=== PATIENT | female | born 1935 | race Caucasian/White ===

== ENCOUNTER → 2017-03-31 | Outpatient (CLI) | payer MEDICARE, BC ==
[2017-03-31 18:17] LABS: Anion Gap 8 mmol/L; Blood Urea Nitrogen 20 mg/dL (7-17); Carbon Dioxide 28 mmol/L (22-30); Chloride 105 mmol/L (98-107); Creatine Kinase 91 U/L (30-135); Glucose 85 mg/dL (74-99); Non-African American GFR(MDRD) >60 (>60 ml/min/1.73 sqM); Potassium 4.4 mmol/L (3.5-5.1); Sodium 141 mmol/L (137-145)
[2017-03-31 19:26] LABS: Vitamin B12 889 pg/mL
[2017-04-03 15:15] LABS: Mis test requested (Blood) MyastheniaGrav Pnl 1
== END | disposition home or self-care (01) ==
LOC: LABWHC1 16:43
PROVIDERS: ATTEND Psychiatry & Neurology Neurology
DX: M62.81 Muscle weakness (generalized) (principal); R53.83 Other fatigue; H53.2 Diplopia
CPT/HCPCS: 36415; 80048; 82306; 82550; 82607; 83519; 86255

== ENCOUNTER → 2018-01-20 | Outpatient (CLI) | payer MEDICARE, BC ==
[2018-01-20 19:27] LABS: Basophils % (A) 0 %; Eosinophils # (A) 0.1 k/uL (0-0.7); Eosinophils % (A) 2 %; HCT 43.8 % (34.0-46.0); HGB 14.1 gm/dL (11.4-16.0); Lymphocytes # (A) 2.2 k/uL (1.0-4.8); Lymphocytes % (A) 56 %; MCH 27.4 pg (25.0-35.0); MCHC 32.3 g/dL (31.0-37.0); MCV 84.8 fL (80.0-100.0); Mean Platelet Volume 7.8; Monocytes # (A) 0.3 k/uL (0-1.0); Monocytes % (A) 7 %; Neutrophils # (A) 1.3 k/uL (1.3-7.7); Neutrophils % (A) 33 %; Platelet Count 155 k/uL (150-450); RBC 5.16 m/uL (3.80-5.40); RDW 13.4 % (11.5-15.5); WBC 3.9 k/uL (3.8-10.6)
[2018-01-20 19:40] LABS: ALT 28 U/L (9-52); AST 39 U/L (14-36); Albumin 4.2 g/dL (3.5-5.0); Alkaline Phosphatase 65 U/L (38-126); Anion Gap 11 mmol/L; Blood Urea Nitrogen 15 mg/dL (7-17); Calcium 10.5 mg/dL (8.4-10.2); Carbon Dioxide 30 mmol/L (22-30); Chloride 100 mmol/L (98-107); Glucose 94 mg/dL (74-99); Potassium 4.5 mmol/L (3.5-5.1); Sodium 141 mmol/L (137-145); Total Bilirubin 0.3 mg/dL (0.2-1.3)
[2018-01-20 20:15] LABS: Ovalocytes Present; RBC Fragments Present
== END | disposition home or self-care (01) ==
LOC: LABMAIN 17:48
PROVIDERS: ATTEND Internal Medicine Critical Care Medicine
DX: E27.40 Unspecified adrenocortical insufficiency (principal)
CPT/HCPCS: 36415; 80053; 82533; 85025

== ENCOUNTER → 2018-06-07 | Outpatient (CLI) | payer BC, MEDICARE ==
--- NOTE | 2018-06-09 13:17 | MM ---
Reason for exam: screening (asymptomatic). Last mammogram was performed 1 year and 9 months ago. History: Patient is postmenopausal and has history of other cancer at age 53. Family history of breast cancer in sister at age 65. 2 excisional biopsies of the right breast. Took estrogen for 14 years 7 months. Physical Findings: A clinical breast exam by your physician is recommended on an annual basis and results should be correlated with mammographic findings. MG 3D Screening Mammo W/Cad Bilateral CC and MLO view(s) were taken. Prior study comparison: September 01, 2016, bilateral MG 3d screening mammo w/cad. December 14, 2014, bilateral MG screening mammo w CAD. The breast tissue is extremely dense which could obscure a lesion on mammography. No significant changes when compared with prior studies. ASSESSMENT: Benign, BI-RAD 2 RECOMMENDATION: Routine screening mammogram of both breasts in 1 year.
== END | disposition home or self-care (01) ==
LOC: RADMAMWWP 13:52
PROVIDERS: ATTEND Obstetrics & Gynecology
DX: Z12.31 Encounter for screening mammogram for malignant neoplasm of breast (principal); Z80.3 Family history of malignant neoplasm of breast
CPT/HCPCS: 77063; 77067

== ENCOUNTER 2019-09-26 15:08 | Inpatient (IN) | payer MEDICARE, BC ==
--- NOTE | 2019-09-26 15:33 | ED ---
SOB HPI - General Source: patient, family, RN notes reviewed Limitations: no limitations <Daryn Shields - Last Filed: 09/26/19 15:34> <Alex Simms - Last Filed: 09/26/19 16:40> - General Stated Complaint: Pneumonia, possible flu Time Seen by Provider: 09/26/19 15:29 - History of Present Illness Initial Comments: this an 84-year-old female presents emergency Department with chief complaint of increasing cough congestion shortness of breath. Patient states that she was diagnosed with influenza last week. Patient also was diagnosed with acute bronchitis and was placed on antibiotics, steroids. Patient was also placed on cough medication. Patient was seen in the ER over the weekend and [place] and was discontinued from antibiotics. Patient's had worsening cough and shortness breath. Patient has seen Dr. Wooten in the past she has been domo gnosed with slight asthma, COPD. (Daryn Shields) 84-year-old female with recent diagnosis of influenza, history of COPD presenting with cough and dyspnea. I discussed this case with the patient's medical auditor Dr. Fletcher who had evaluated the patient the office prior to [facility]. Outpatient x-ray had revealed bilateral pneumonia. She was sent to the emergency department for admission for treatment of COPD exacerbation, influenza, and bilateral community acquired pneumonia. (Alex Simms) - Related Data Allergies Allergy/AdvReac Type Severity Reaction Status Date / Time ampicillin Allergy Rash/Hives Verified 09/26/19 15:38 celecoxib [From Celebrex] Allergy Rash/Hives Verified 09/26/19 15:38 gatifloxacin [From Tequin] Allergy Rash/Hives Verified 09/26/19 15:38 meperidine [From Demerol] Allergy Unknown Verified 09/26/19 15:38 naproxen [From Naprelan] Allergy Rash/Hives Verified 09/26/19 15:38 Review of Systems ROS Other: All systems not noted in ROS Statement are negative. <Daryn Shields - Last Filed: 09/26/19 15:34> ROS Other: All systems not noted in ROS Statement are negative. <Alex Simms - Last Filed: 09/26/19 16:40> ROS Statement: Those systems with pertinent positive or pertinent negative responses have been documented in the HPI. General Exam General appearance: alert, in no apparent distress Head exam: Present: atraumatic, normocephalic Eye exam: Present: normal appearance, PERRL ENT exam: Present: normal exam Neck exam: Present: normal inspection. Absent: tenderness, meningismus Respiratory exam: Present: wheezes, rhonchi, decreased breath sounds Cardiovascular Exam: Present: regular rate, normal rhythm GI/Abdominal exam: Present: soft. Absent: distended, tenderness, guarding Extremities exam: Present: normal inspection, normal capillary refill. Absent: pedal edema, calf tenderness Neurological exam: Present: alert, oriented X3, CN II-XII intact. Absent: motor sensory deficit Psychiatric exam: Present: normal affect, normal mood Skin exam: Present: warm, dry, intact. Absent: cyanosis, diaphoretic <Alex Simms - Last Filed: 09/26/19 16:40> Course Vital Signs 09/26/19 09/26/19 09/26/19 15:28 16:28 16:31 Temperature 97.9 F Pulse Rate 66 64 64 Respiratory 20 18 Rate Blood Pressure 123/71 126/55 O2 Sat by Pulse 97 97 Oximetry Medical Decision Making - Lab Data Result diagrams: 09/26/19 15:10 <Alex Simms - Last Filed: 09/26/19 16:40> - Medical Decision Making 84-year-old female presenting for evaluation of cough and dyspnea. She diagnosed with influenza 4 days prior. She had an outpatient x-ray today which was reported as bilateral pneumonia. Sent in by pulmonology for admission. Patient admitted to internal medicine with pulmonology on consult. She had previous history of adrenal insufficiency following steroids, and patient would like to hold off on any steroid infusion at this time. She will be treated with antibiotics and nebulized albuterol and Atrovent. Patient has leukocytosis 13.6, she has a sodium of 126 treated with normal saline. Normal lactic acid. Patient's will receive repeat chest x-ray tomorrow morning. EKG: Normal sinus rhythm, no ST segment elevation, rate is 64, IL interval 168, QRS duration 88, QTC 443 (Alex Simms) - Lab Data Lab Results 09/26/19 09/26/19 Range/Units 15:10 15:10 WBC 13.6 H (3.8-10.6) k/uL RBC 4.37 (3.80-5.40) m/uL Hgb 12.6 (11.4-16.0) gm/dL Hct 37.4 (34.0-46.0) % MCV 85.7 (80.0-100.0) fL MCH 28.9 (25.0-35.0) pg MCHC 33.8 (31.0-37.0) g/dL RDW 13.5 (11.5-15.5) % Plt Count 251 (150-450) k/uL Neutrophils % 82 % Lymphocytes % 8 % Monocytes % 6 % Eosinophils % 1 % Basophils % 2 % Neutrophils # 11.2 H (1.3-7.7) k/uL Lymphocytes # 1.1 (1.0-4.8) k/uL Monocytes # 0.8 (0-1.0) k/uL Eosinophils # 0.1 (0-0.7) k/uL Basophils # 0.2 (0-0.2) k/uL Plasma Lactic Acid Kyle 1.1 (0.7-2.0) mmol/L Disposition <Daryn Shields M - Last Filed: 09/26/19 15:34> Is patient prescribed a controlled substance at d/c from ED?: No Decision to Admit Reason: Admit from EC Decision Date: 09/26/19 Decision Time: 16:10 <Alex Simms - Last Filed: 09/26/19 16:40> Clinical Impression: Community acquired pneumonia, Acute exacerbation of chronic obstructive pulmonary disease, Influenza Disposition: ADMITTED IP TO THIS HOSP Condition: Stable Referrals: Alex Murray MD [Primary Care Provider] - 1-2 days
[2019-09-26] MEDS ORDERED: methylPREDNISolone SOD SUCCI 125 MG/2 ML VIAL IV STA (15:56)
[2019-09-26] MEDS ORDERED: IPRATROPIUM 0.5 MG/2.5 ML NEBU INHALATION STA (15:56)
[2019-09-26] MEDS ORDERED: ALBUTEROL NEBULIZED 2.5 MG/3 ML INHALATION STA (15:56)
[2019-09-26] MEDS ORDERED: IPRATROPIUM-ALBUTEROL 3 ML NEB INHALATION PRN (16:04)
[2019-09-26] MEDS ORDERED: LEVOFLOXACIN 500MG-D5W PMX 500 MG in DEXTROSE/WATER 1 100ML.BAG IVPB STA (16:04)
[2019-09-26 16:25] LABS: Basophils # (A) 0.2 k/uL (0-0.2); Basophils % (A) 2 %; Eosinophils # (A) 0.1 k/uL (0-0.7); Eosinophils % (A) 1 %; HCT 37.4 % (34.0-46.0); HGB 12.6 gm/dL (11.4-16.0); Lymphocytes # (A) 1.1 k/uL (1.0-4.8); Lymphocytes % (A) 8 %; MCH 28.9 pg (25.0-35.0); MCHC 33.8 g/dL (31.0-37.0); MCV 85.7 fL (80.0-100.0); Monocytes # (A) 0.8 k/uL (0-1.0); Monocytes % (A) 6 %; Neutrophils # (A) 11.2 k/uL (1.3-7.7); Neutrophils % (A) 82 %; Platelet Count 251 k/uL (150-450); RBC 4.37 m/uL (3.80-5.40); RDW 13.5 % (11.5-15.5); WBC 13.6 k/uL (3.8-10.6)
[2019-09-26 16:39] LABS: ALT 50 U/L (4-34); AST 70 U/L (14-36); African American GFR (CKD) >90 (>60 ml/min/1.73 sqM); Albumin 3.6 g/dL (3.5-5.0); Alkaline Phosphatase 102 U/L (38-126); Anion Gap 10 mmol/L; Blood Urea Nitrogen 14 mg/dL (7-17); Calcium 8.5 mg/dL (8.4-10.2); Carbon Dioxide 27 mmol/L (22-30); Chloride 89 mmol/L (98-107); Glucose 119 mg/dL (74-99); Magnesium 2.3 mg/dL (1.6-2.3); Non-African American GFR(CKD) 81 (>60 ml/min/1.73 sqM); Potassium 3.8 mmol/L (3.5-5.1); Sodium 126 mmol/L (137-145); Total Bilirubin 0.6 mg/dL (0.2-1.3); Total Protein 6.5 g/dL (6.3-8.2)
[2019-09-26] MEDS: SODIUM CHLORIDE 0.9% 1,000 ML IV SCH (17:51)
[2019-09-26] MEDS ORDERED: IPRATROPIUM-ALBUTEROL 3 ML NEB INHALATION SCH (20:00)
[2019-09-26] MEDS ORDERED: PANTOPRAZOLE 40 MG TABLET PO PRN (22:52)
[2019-09-26] MEDS ORDERED: DICYCLOMINE 10 MG CAP PO PRN (22:52)
[2019-09-26] MEDS ORDERED: LISINOPRIL 20 MG TAB PO SCH (23:00)
--- NOTE | 2019-09-26 23:08 | P.HPIM ---
History of Present Illness H&P Date: 09/26/19 Chief Complaint: Cough congestion History of presenting complaint: This is a very pleasant 84-year-old patient of Dr. Murray. Chronic stable medical conditions include GERD, hypertension, hyperlipidemia, hypothyroid and a formal for arrhythmia for which she takes amiodarone. She follows with the hack saw operator Dr. Vincent from [place]. Patient accompanied by her daughter. Patient for a week diagnosed with influenza A type unknown. She is having congestion cough. She was given medications including antibiotic and steroids. No fever and chills. Just felt very weak tired rundown decreased appetite and a lot of coughing. Patient had gone down to see Dr. Aguirre earlier today. Reportedly was found to have bilateral infiltrates and was sent in. Feels tired rundown. Review of systems: GEN.: Decreased appetite tired rundown EYES: Itchy eyes with some drainage HEENT: None NECK: None RESPIRATORY: As above CARDIOVASCULAR: None GASTROINTESTINAL: None GENITOURINARY: None MUSCULOSKELETAL: Some joint pains LYMPHATICS: None HEMATOLOGICAL: None PSYCHIATRY: None NEUROLOGICAL: None Past medical history to include: Asthma, GERD, hypertension, hyperlipidemia, thyroid cancer, SVT, macular degeneration Social history: Does not smoke or drink alcohol. . Physical examination: VITAL SIGNS: 97.9, 66, 20, 123/71, 97% on room air GENERAL: BMI 22.2, laying in bed tired appearing. EYES: Pupils equal. Conjunctiva normal. HEENT: External appearance of nose and ears normal, oral cavity grossly normal. NECK: JVD not raised; masses not palpable. HEART: First and second heart sounds are normal; no edema. LUNGS: Respiratory rate increased, some decreased breaths on some occasional crackles mild wheezing. ABDOMEN: Soft, nontender, liver spleen not palpable, no masses palpable. PSYCH: Alert and oriented x3; mood and affect slightly anxiousl. NEUROLOGICAL: Cranial nerves grossly intact; no facial asymmetry, power and sensation grossly intact. LYMPHATICS: No lymph nodes palpable in the axilla and neck 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 INVESTIGATIONS, reviewed in the clinical context: White count 13.6 hemoglobin 12.6 potassium 3.8 sodium 126 creatinine 0.69 Assessment: -This is a patient was diagnosed with influenza type unknown about a week ago. Has had steroids antibiotics not much help. Patient now trouble with weakness tiredness decreased appetite and rundown and bouts of coughing. Seems to se condary bronchospasm. Did not have the x-ray but reportedly and bilateral infiltrates likely from influenza pneumonitis. There is no fever or chills. Secondary infection cannot be ruled out -Intubated asthma with acute exacerbation -GERD -Hyperlipidemia -Essential hypertension -History of arrhythmia for which patient is on amiodarone -Hypothyroid Plan: Patient be continued on Tamiflu. Add bronchodilators and inhaled steroids. Home medications resumed. Lovenox for DVT prophylaxis. Pulmonary was consulted. Care was discussed with the patient and daughter questions were answered. We'll also add IV ceftriaxone. Repeat a chest x-ray in the morning. We'll also order pro calcitonin. Past Medical History Past Medical History: Asthma, Cancer, GERD/Reflux, Hyperlipidemia, Hypertension, Thyroid Disorder Additional Past Medical History / Comment(s): macular degeneration, SVT, thyroid cancer History of Any Multi-Drug Resistant Organisms: None Reported Past Surgical History: Adenoidectomy, Appendectomy, Hysterectomy Additional Past Surgical History / Comment(s): thyroid removal, removal of part of right kidney, back surgery, knee surgery replacement, shoulder surgery Additional Past Anesthesia/Blood Transfusion Reaction / Comment(s): Anesthesia takes a while to wake up Past Psychological History: No Psychological Hx Reported Smoking Status: Never smoker Past Alcohol Use History: None Reported Past Drug Use History: None Reported - Past Family History Mother Family Medical History: Cancer Additional Family Medical History / Comment(s): Open Heart Sx Father History Unknown: Yes Family Medical History: CVA/TIA Sister(s) History Unknown: Yes Family Medical History: Cancer Additional Family Medical History / Comment(s): Breast Cancers Brother(s) History Unknown: Yes Family Medical History: CVA/TIA Additional Family Medical History / Comment(s): Magdaleno Bleed Medications and Allergies Home Medications Medication Instructions Recorded Confirmed Type Amiodarone [Cordarone] 200 mg PO DAILY 09/26/19 09/26/19 History Aspirin EC [Ecotrin Low Dose] 81 mg PO DAILY 09/26/19 09/26/19 History Atorvastatin [Lipitor] 40 mg PO DAILY 09/26/19 09/26/19 History Benzonatate [Tessalon Perles] 200 mg PO TID PRN 09/26/19 09/26/19 History Calcium Carbonate [Calcium] 600 mg PO DAILY 09/26/19 09/26/19 History Cephalexin [Keflex] 500 mg PO Q8H 09/26/19 09/26/19 History Cholecalciferol (Vitamin D3) 2,000 unit PO DAILY 09/26/19 09/26/19 History [Vitamin D3] Denosumab [Prolia] 60 mg SQ Q180D 09/26/19 09/26/19 History Dicyclomine [Bentyl] 10 mg PO BID PRN 09/26/19 09/26/19 History Hydrochlorothiazide 25 mg PO DAILY PRN 09/26/19 09/26/19 History Levothyroxine Sodium [Synthroid] 88 mcg PO DAILY 09/26/19 09/26/19 History Lisinopril 40 mg PO HS 09/26/19 09/26/19 History Metoprolol Tartrate [Lopressor] 75 mg PO BID 09/26/19 09/26/19 History Olopatadine HCl [Patanol] 1 drop BOTH EYES BID 09/26/19 09/26/19 History Pantoprazole Sodium [Protonix] 40 mg PO BID PRN 09/26/19 09/26/19 History Promethaz-Cod 6.25-10 mg/5 ml 5 ml PO Q6H PRN 09/26/19 09/26/19 History [Phenergan with Codeine] Restful Sleep 1 tab PO HS PRN 09/26/19 09/26/19 History Vit C/E/Zn/Coppr/Lutein/Zeaxan 1 cap PO BID 09/26/19 09/26/19 History [Preservision Areds 2 Softgel] guaiFENesin SYRUP 100MG/5ML 200 mg PO Q6H PRN 09/26/19 09/26/19 History [Robitussin] Allergies Allergy/AdvReac Type Severity Reaction Status Date / Time celecoxib [From Celebrex] Allergy Rash/Hives Verified 09/26/19 17:30 gatifloxacin [From Tequin] Allergy Rash/Hives Verified 09/26/19 17:30 naproxen [From Naprelan] Allergy Rash/Hives Verified 09/26/19 17:30 ampicillin AdvReac Nausea & Verified 09/26/19 17:30 Vomiting hydrocortisone [From Cortef] AdvReac adrenal Verified 09/26/19 17:30 glands shut down from injections meperidine [From Demerol] AdvReac passed out Verified 09/26/19 17:30 Physical Exam Vitals: Vital Signs Temp Pulse Pulse Resp BP BP Pulse Ox 09/26/19 20:15 98.2 F 76 18 124/64 98 09/26/19 19:40 69 09/26/19 19:35 68 09/26/19 16:49 67 09/26/19 16:31 64 09/26/19 16:28 64 18 126/55 97 09/26/19 15:28 97.9 F 66 20 123/71 97 Intake and Output 09/26/19 09/26/19 09/27/19 14:59 22:59 06:59 Other: Weight 52.163 kg Results CBC & Chem 7: 09/26/19 15:10 09/26/19 15:10 Labs: Abnormal Lab Results - Last 24 Hours (Table) 09/26/19 09/26/19 Range/Units 15:10 15:10 WBC 13.6 H (3.8-10.6) k/uL Neutrophils # 11.2 H (1.3-7.7) k/uL Sodium 126 L (137-145) mmol/L Chloride 89 L (98-107) mmol/L Glucose 119 H (74-99) mg/dL AST 70 H (14-36) U/L ALT 50 H (4-34) U/L Thrombosis Risk Factor Assmnt - Choose All That Apply Any of the Below Risk Factors Present?: Yes Each Risk Factor Represents 3 Points: Age 75 years or older Thrombosis Risk Factor Assessment Total Risk Factor Score: 3 Thrombosis Risk Factor Assessment Level: Moderate Risk
[2019-09-26] MEDS: KETOTIFEN 0.025% OPHTH DROPS 5 ML BTL BOTH EYES SCH (23:26)
[2019-09-26] MEDS: MELATONIN 1 MG TAB PO SCH (23:28)
[2019-09-26] MEDS: METOPROLOL TARTRATE 25 MG TAB PO SCH (23:29)
[2019-09-26] MEDS: LISINOPRIL 20 MG TAB PO SCH (23:29)
[2019-09-26] MEDS: ENOXAPARIN 40 MG/0.4 ML SYRINGE SQ SCH (23:31)
[2019-09-26] MEDS: CIPROFLOXACIN 0.3% OPHTH SOLN 5 ML BTL BOTH EYES SCH (23:32)
[2019-09-27] MEDS: BUDESONIDE 1 MG/2 ML NEBU INHALATION SCH ×3 (01:02→19:05)
[2019-09-27] MEDS: IPRATROPIUM-ALBUTEROL 3 ML NEB INHALATION SCH ×7 (01:02→19:05)
[2019-09-27] MEDS: CIPROFLOXACIN 0.3% OPHTH SOLN 5 ML BTL BOTH EYES SCH ×6 (04:29→23:01)
[2019-09-27] MEDS: SODIUM CHLORIDE 0.9% 1,000 ML IV SCH ×2 (04:30→20:40)
[2019-09-27] MEDS: LEVOTHYROXINE 88 MCG TAB PO SCH (04:32)
[2019-09-27] MEDS: ATORVASTATIN 40 MG TAB PO SCH (08:24)
[2019-09-27] MEDS: LISINOPRIL 20 MG TAB PO SCH ×2 (08:24→20:39)
[2019-09-27] MEDS: ASPIRIN 81 MG PO SCH (08:24)
[2019-09-27] MEDS: METOPROLOL TARTRATE 25 MG TAB PO SCH ×2 (08:24→20:39)
[2019-09-27] MEDS: AMIODARONE 200 MG TAB PO SCH (08:24)
[2019-09-27] MEDS: CALCIUM CARBONATE 500 MG CHEWABLE PO SCH (08:24)
[2019-09-27] MEDS: KETOTIFEN 0.025% OPHTH DROPS 5 ML BTL BOTH EYES SCH ×2 (08:25→20:39)
[2019-09-27] MEDS: VIT A,C & E-LUTEIN-MINERALS 1 EACH TAB PO SCH (08:25)
[2019-09-27] MEDS: ENOXAPARIN 40 MG/0.4 ML SYRINGE SQ SCH (08:27)
[2019-09-27] MEDS ORDERED: OSELTAMIVIR 75 MG CAP PO SCH (09:00)
--- NOTE | 2019-09-27 09:28 | XR ---
EXAMINATION TYPE: XR chest 2V DATE OF EXAM: 09/27/2019 COMPARISON: 01/07/2010 TECHNIQUE: PA and lateral views submitted. HISTORY: Pneumonia, cough FINDINGS: Hyperinflation suggests COPD. Mass in the right upper lobe measuring 2.8 cm. A patchy infiltrate in t he perihilar regions. Underlying COPD biapical pleural thickening. Heart size normal. No overt failur e. No pneumothorax. IMPRESSION: 1. COPD with patchy bilateral areas of atelectasis or infiltrate. 2. There is a 2.8 cm mass right upper lobe. Neoplastic process in the differential diagnosis recommen d CT of the chest.
--- NOTE | 2019-09-27 15:59 | P.CNPUL ---
History of Present Illness Consult date: 09/27/19 Reason for consult: dyspnea, cough Chief complaint: Influenza A infection, bilateral pneumonia History of present illness: 84-year-old white female patient with history of mild intermittent bronchial asthma, history of adrenal cortical hypofunction, benign essential hypertension, migraine cephalgia, who presents to the hospital with 1-1/2 week history of respiratory illness, cough, production of green and yellow sputum, severe headaches, sore throat. Patient did see her primary care provider Dr. Murray on outpatient basis she was started on Keflex on her second visit after no improvement, was diagnosed with influenza infection however not started on Tamiflu as it was felt that she was too far into the course of the viral illness. Last S[place] patient presented to [place] emergency department because she was feeling very weak, her ribs were hurting from coughing spells, and she was feeling significantly worse, reportedly chest x-rays were taken in the ED, and patient was told to stop her Keflex and she was sent home from the emergency department that night, yesterday on 09/26/[address] patient went to see Dr[address] Aguirre the pulmonary clinic, and is diagnosed with bilateral pneumonia and was sent in for inpatient evaluation and treatment. Chest x-ray showed COPD with patchy bilateral areas of infiltration, and 2.8 cm mass in the right upper lobe, which follow-up CT of the chest was recommended to rule out neoplastic process. She is a lifetime nonsmoker, has not had any weight loss, she reports previous chest x-rays in normal limits. Patient has been started on Tamiflu, and Rocephin, and we are asked to see the patient for bilateral pneumonia and abnormality involving the right upper lobe rule out neoplastic process. Review of Systems All systems: negative Constitutional: Denies chills, Denies fever Eyes: denies blurred vision, denies pain Ears, nose, mouth and throat: Denies headache, Denies sore throat Cardiovascular: Denies chest pain, Denies shortness of breath Respiratory: Reports cough with sputum, Reports dyspnea, Denies cough Gastrointestinal: Denies abdominal pain, Denies diarrhea, Denies nausea, Denies vomiting Genitourinary: Denies dysuria, Denies hematuria Musculoskeletal: Denies myalgias Integumentary: Denies pruritus, Denies rash Neurological: Denies numbness, Denies weakness Psychiatric: Denies anxiety, Denies depression Endocrine: Denies fatigue, Denies weight change Past Medical History Past Medical History: Asthma, Cancer, GERD/Reflux, Hyperlipidemia, Hypertension, Thyroid Disorder Additional Past Medical History / Comment(s): macular degeneration, SVT, thyroid cancer History of Any Multi-Drug Resistant Organisms: None Reported Past Surgical History: Adenoidectomy, Appendectomy, Hysterectomy Additional Past Surgical History / Comment(s): thyroid removal, removal of part of right kidney, back surgery, knee surgery replacement, shoulder surgery Additional Past Anesthesia/Blood Transfusion Reaction / Comment(s): Anesthesia takes a while to wake up Past Psychological History: No Psychological Hx Reported Smoking Status: Never smoker Past Alcohol Use History: None Reported Past Drug Use History: None Reported - Past Family History Mother Family Medical History: Cancer Additional Family Medical History / Comment(s): Open Heart Sx Father History Unknown: Yes Family Medical History: CVA/TIA Sister(s) History Unknown: Yes Family Medical History: Cancer Additional Family Medical History / Comment(s): Breast Cancers Brother(s) History Unknown: Yes Family Medical History: CVA/TIA Additional Family Medical History / Comment(s): Magdaleno Bleed Medications and Allergies Home Medications Medication Instructions Recorded Confirmed Type Amiodarone [Cordarone] 200 mg PO DAILY 09/26/19 09/26/19 History Aspirin EC [Ecotrin Low Dose] 81 mg PO DAILY 09/26/19 09/26/19 History Atorvastatin [Lipitor] 40 mg PO DAILY 09/26/19 09/26/19 History Benzonatate [Tessalon Perles] 200 mg PO TID PRN 09/26/19 09/26/19 History Calcium Carbonate [Calcium] 600 mg PO DAILY 09/26/19 09/26/19 History Cephalexin [Keflex] 500 mg PO Q8H 09/26/19 09/26/19 History Cholecalciferol (Vitamin D3) 2,000 unit PO DAILY 09/26/19 09/26/19 History [Vitamin D3] Denosumab [Prolia] 60 mg SQ Q180D 09/26/19 09/26/19 History Dicyclomine [Bentyl] 10 mg PO BID PRN 09/26/19 09/26/19 History Hydrochlorothiazide 25 mg PO DAILY PRN 09/26/19 09/26/19 History Levothyroxine Sodium [Synthroid] 88 mcg PO DAILY 09/26/19 09/26/19 History Lisinopril 20 mg PO BID 09/26/19 09/26/19 History Metoprolol Tartrate [Lopressor] 75 mg PO BID 09/26/19 09/26/19 History Olopatadine HCl [Patanol] 1 drop BOTH EYES BID 09/26/19 09/26/19 History Pantoprazole Sodium [Protonix] 40 mg PO BID PRN 09/26/19 09/26/19 History Promethaz-Cod 6.25-10 mg/5 ml 5 ml PO Q6H PRN 09/26/19 09/26/19 History [Phenergan with Codeine] Restful Sleep 1 tab PO HS PRN 09/26/19 09/26/19 History Vit C/E/Zn/Coppr/Lutein/Zeaxan 1 cap PO BID 09/26/19 09/26/19 History [Preservision Areds 2 Softgel] guaiFENesin SYRUP 100MG/5ML 200 mg PO Q6H PRN 09/26/19 09/26/19 History [Robitussin] Allergies Allergy/AdvReac Type Severity Reaction Status Date / Time celecoxib [From Celebrex] Allergy Rash/Hives Verified 09/26/19 17:30 gatifloxacin [From Tequin] Allergy Rash/Hives Verified 09/26/19 17:30 naproxen [From Naprelan] Allergy Rash/Hives Verified 09/26/19 17:30 ampicillin AdvReac Nausea & Verified 09/26/19 17:30 Vomiting hydrocortisone [From Cortef] AdvReac adrenal Verified 09/26/19 17:30 glands shut down from injections meperidine [From Demerol] AdvReac passed out Verified 09/26/19 17:30 Physical Exam Vitals: Vital Signs Temp Pulse Pulse Resp BP BP Pulse Ox 09/27/19 11:12 72 09/27/19 11:00 72 09/27/19 08:04 76 09/27/19 07:51 72 09/27/19 07:00 99.3 F 67 16 111/66 95 09/27/19 04:46 71 09/27/19 04:35 71 09/27/19 03:50 18 09/27/19 01:20 98.3 F 67 18 106/62 93 L 09/27/19 01:17 68 09/27/19 01:06 68 09/27/19 00:00 18 09/26/19 23:30 71 131/68 09/26/19 20:45 18 09/26/19 20:15 98.2 F 76 18 124/64 98 09/26/19 19:40 69 09/26/19 19:35 68 09/26/19 16:49 67 09/26/19 16:31 64 09/26/19 16:28 64 18 126/55 97 09/26/19 15:28 97.9 F 66 20 123/71 97 Intake and Output 09/26/19 09/27/19 09/27/19 22:59 06:59 14:59 Intake Total 450 450 600 Balance 450 450 600 Intake: IV 600 Sodium Chloride 0.9% 1, 600 000 ml @ 75 mls/hr IV . [id number] BRAD Rx#:[id number] Intake, IV Titration 450 450 Amount Sodium Chloride 0.9% 1, 450 450 000 ml @ 75 mls/hr IV . [id number] BRAD Rx#:[id number] Other: # Voids 2 Weight 52.163 kg GENERAL EXAM: Alert, very pleasant, 84-year-old white female, on room air, with pulse ox of 97%, frequent nonproductive cough comfortable in no apparent distress. HEAD: Normocephalic/atraumatic. EYES: Normal reaction of pupils, equal size. Conjunctiva pink, sclera white. NOSE: Clear with pink turbinates. THROAT: No erythema or exudates. NECK: No masses, no JVD, no thyroid enlargement, no adenopathy. CHEST: No chest wall deformity. Symmetrical expansion. LUNGS: Equal air entry with crackles bilateral bases and mid lungs CVS: Regular rate and rhythm, normal S1 and S2, no gallops, no murmurs, no rubs ABDOMEN: Soft, nontender. No hepatosplenomegaly, normal bowel sounds, no guarding or rigidity. EXTREMITIES: No clubbing, no edema, no cyanosis, 2+ pulses and upper and lower extremities. MUSCULOSKELETAL: Muscle strength and tone normal. SPINE: No scoliosis or deformity SKIN: No rashes CENTRAL NERVOUS SYSTEM: Alert and oriented -3. No focal deficits, tone is normal in all 4 extremities. PSYCHIATRIC: Alert and oriented -3. Appropriate affect. Intact judgment and insight. Results - Laboratory Findings CBC and BMP: 09/26/19 15:10 09/26/19 15:10 Abnormal lab findings: Abnormal Labs 09/26/19 09/26/19 15:10 15:10 WBC 13.6 H Neutrophils # 11.2 H Sodium 126 L Chloride 89 L Glucose 119 H AST 70 H ALT 50 H - Diagnostic Findings Chest x-ray: report reviewed, image reviewed Assessment and Plan Plan: Assessment: #1. Acute bilateral pneumonia, rule out influenza pneumonia, Legionella or atypical pneumonia #2. Right upper lobe mass, rule out neoplastic process, follow with CT chest in the next 24-48 hours #3. Acute influenza infection #4. History of mild intermittent bronchial asthma #5. GERD/reflux #6. Hypertension #7. Hyperlipidemia #8. History of thyroid cancer #9. Macular degeneration #10. History of adrenal cortical hypofunction Plan: Continue current treatment, will obtain influenza swab, continue Tamiflu, continued Rocephin will add Zithromax, Sorensen and Perforomist continue DuoNeb. HEENT sputum culture, we'll consider CT of the chest with contrast in next 24-48 hours. Follow-up chest x-ray in the morning. I performed a history & physical examination of the patient and discussed their management with my nurse practitioner, Kimberly Mckee. I reviewed the nurse practitioner's note and agree with the documented findings and plan of care. Lung sounds are positive for coarse bilateral crackles. The findings and the impression was discussed with the patient. I attest to the documentation by the nurse practitioner. Time with Patient: Greater than 30
[2019-09-27] MEDS: AZITHROMYCIN 500 MG TAB PO SCH (16:04)
[2019-09-27] MEDS: FORMOTEROL FUMARATE 20 MCG/2 ML NEBU INHALATION SCH (19:05)
[2019-09-27] MEDS: MELATONIN 1 MG TAB PO SCH (20:39)
[2019-09-27] MEDS ORDERED: OSELTAMIVIR 60 MG/10 ML ORAL SYRINGE PO SCH (21:00)
[2019-09-28] MEDS: IPRATROPIUM-ALBUTEROL 3 ML NEB INHALATION SCH ×6 (00:32→19:30)
--- NOTE | 2019-09-28 00:59 | P.PN ---
Progress Note - Text Progress Note Date: 09/27/19 Chief Complaint: Cough congestion Interval history: This is a very pleasant 84-year-old patient of Dr. Murray. Chronic stable medical conditions include GERD, hypertension, hyperlipidemia, hypothyroid and a formal for arrhythmia for which she takes amiodarone. She follows with the pharmaceutical sales specialist Dr. Vincent from [place]. Patient accompanied by her daughter. Patient for a week diagnosed with influenza A type unknown. She is having congestion cough. She was given medications including antibiotic and steroids. No fever and chills. Just felt very weak tired rundown decreased appetite and a lot of coughing. Patient had gone down to see Dr. Aguirre earlier today. Reportedly was found to have bilateral infiltrates and was sent in. Feels tired rundown. Today-feeling a bit better. Less cough. Did tolerate some diet. Less short of breath. Laying in bed. Review of systems: Was done for constitutional, cardiovascular, GI, pulmonary. relevant finding as above Active Medications Albuterol/Ipratropium (Duoneb 0.5 Mg-3 Mg/3 Ml Soln) 3 ml INHALATION RT-Q4H PRN PRN Reason: Shortness Of Breath Or Wheezing Albuterol/Ipratropium (Duoneb 0.5 Mg-3 Mg/3 Ml Soln) 3 ml INHALATION RT-Q4H [facility] Last Admin: 09/28/19 00:32 Dose: 3 ml Documented by: Amiodarone HCl (Cordarone) 200 mg PO DAILY [facility] Last Admin: 09/27/19 08:24 Dose: 200 mg Documented by: Aspirin (Aspirin) 81 mg PO DAILY [facility] Last Admin: 09/27/19 08:24 Dose: 81 mg Documented by: Atorvastatin Calcium (Lipitor) 40 mg PO DAILY [facility] Last Admin: 09/27/19 08:24 Dose: 40 mg Documented by: Azithromycin (Zithromax) 500 mg PO DAILY@1600 [facility] Last Admin: 09/27/19 16:04 Dose: 500 mg Documented by: Budesonide (Pulmicort) 1 mg INHALATION RT-BID [facility] Last Admin: 09/27/19 19:05 Dose: 1 mg Documented by: Calcium Carbonate/Glycine (Tums) 500 mg PO DAILY [facility] Last Admin: 09/27/19 08:24 Dose: 500 mg Documented by: Ciprofloxacin (Cipro Ophth Soln) 1 drops BOTH EYES Q4HR [facility] Last Admin: 09/27/19 23:01 Dose: 1 drops Documented by: Dicyclomine HCl (Bentyl) 10 mg PO BID PRN PRN Reason: GI Upset Enoxaparin Sodium (Lovenox) 40 mg SQ DAILY [facility] Last Admin: 09/27/19 08:27 Dose: 40 mg Documented by: Formoterol Fumarate (Perforomist) 20 mcg INHALATION RT-BID [facility] Last Admin: 09/27/19 19:05 Dose: 20 mcg Documented by: Sodium Chloride (Saline 0.9%) 1,000 mls @ 75 mls/hr IV .[id number] [facility] Last Admin: 09/27/19 20:40 Dose: 75 mls/hr Documented by: Ceftriaxone Sodium 1 gm/ (Sodium Chloride) 50 mls @ 100 mls/hr IVPB Q24HR [facility] Last Admin: 09/27/19 08:00 Dose: 100 mls/hr Documented by: Ketotifen Fumarate (Zaditor) 1 drops BOTH EYES BID [facility] Last Admin: 09/27/19 20:39 Dose: 1 drops Documented by: Levothyroxine Sodium (Synthroid) 88 mcg PO DAILY@0630 [facility] Last Admin: 09/27/19 04:32 Dose: 88 mcg Documented by: Lisinopril (Zestril) 20 mg PO BID [facility] Last Admin: 09/27/19 20:39 Dose: 20 mg Documented by: Melatonin (Melatonin) 2 mg PO HS [facility] Last Admin: 09/27/19 20:39 Dose: 2 mg Documented by: Metoprolol Tartrate (Lopressor) 75 mg PO BID [facility] Last Admin: 09/27/19 20:39 Dose: 75 mg Documented by: Multivitamins/Minerals (Ivite) 1 each PO DAILY [facility] Last Admin: 09/27/19 08:25 Dose: 1 each Documented by: Oseltamivir Phosphate (Tamiflu) 30 mg PO Q12HR [facility] Stop: 10/01/19 21:01 Last Admin: 09/27/19 20:39 Dose: 30 mg Documented by: Pantoprazole Sodium (Protonix) 40 mg PO BID PRN PRN Reason: Heartburn Physical examination: VITAL SIGNS: 98.3, 69, 16, 103/64, 98% GENERAL: Propped up but appears more comfortable EYES: Pupils equal. Conjunctiva normal. HEENT: External appearance of nose and ears normal, oral cavity grossly normal. NECK: JVD not raised; masses not palpable. HEART: First and second heart sounds are normal; no edema. LUNGS: Respiratory rate increased, some decreased breaths on some occasional crackles mild wheezing. ABDOMEN: Soft, nontender, liver spleen not palpable, no masses palpable. PSYCH: Alert and oriented x3; mood and affect slightly anxiousl. 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 Continue with bronchodilator steroids antibiotics. Computed tomography scan to follow up with the upper lung mass. Follow with pulmonary
[2019-09-28] MEDS: CIPROFLOXACIN 0.3% OPHTH SOLN 5 ML BTL BOTH EYES SCH ×6 (05:18→23:22)
[2019-09-28] MEDS: LEVOTHYROXINE 88 MCG TAB PO SCH (05:18)
[2019-09-28 07:25] LABS: HCT 33.3 % (34.0-46.0); HGB 10.7 gm/dL (11.4-16.0); MCH 28.1 pg (25.0-35.0); MCHC 32.1 g/dL (31.0-37.0); MCV 87.5 fL (80.0-100.0); Mean Platelet Volume 6.9; Platelet Count 232 k/uL (150-450); RDW 13.8 % (11.5-15.5); WBC 9.2 k/uL (3.8-10.6)
[2019-09-28 08:06] LABS: African American GFR (CKD) >90 (>60 ml/min/1.73 sqM); Anion Gap 9 mmol/L; Blood Urea Nitrogen 10 mg/dL (7-17); Calcium 7.9 mg/dL (8.4-10.2); Carbon Dioxide 25 mmol/L (22-30); Chloride 102 mmol/L (98-107); Glucose 108 mg/dL (74-99); Non-African American GFR(CKD) 83 (>60 ml/min/1.73 sqM); Potassium 3.4 mmol/L (3.5-5.1); Sodium 136 mmol/L (137-145)
--- NOTE | 2019-09-28 08:24 | XR ---
EXAMINATION TYPE: XR chest 2V DATE OF EXAM: 09/28/2019 COMPARISON: 09/27/2019 TECHNIQUE: PA and lateral views submitted. HISTORY: Follow-up pneumonia FINDINGS: Diffuse hyperinflation. Bilateral perihilar areas of subsegmental consolidation noted with small bila teral effusion. There is a mass in the right upper lobe again noted. No pneumothorax. No interstitial edema. Atherosclerotic change of the aorta. IMPRESSION: 1. COPD with bilateral areas of subsegmental consolidation correlate for pneumonia. Masslike area of consolidation in the right upper lobe stable. Differential diagnosis remains round pneumonia versus n eoplasm..
[2019-09-28] MEDS: SODIUM CHLORIDE 0.9% 1,000 ML IV SCH (08:26)
[2019-09-28] MEDS: CALCIUM CARBONATE 500 MG CHEWABLE PO SCH (08:27)
[2019-09-28] MEDS: ENOXAPARIN 40 MG/0.4 ML SYRINGE SQ SCH (08:27)
[2019-09-28] MEDS: KETOTIFEN 0.025% OPHTH DROPS 5 ML BTL BOTH EYES SCH ×2 (08:27→21:05)
[2019-09-28] MEDS: METOPROLOL TARTRATE 25 MG TAB PO SCH ×2 (08:28→21:04)
[2019-09-28] MEDS: AMIODARONE 200 MG TAB PO SCH (08:28)
[2019-09-28] MEDS: ASPIRIN 81 MG PO SCH (08:28)
[2019-09-28] MEDS: LISINOPRIL 20 MG TAB PO SCH ×2 (08:28→21:05)
[2019-09-28] MEDS: ATORVASTATIN 40 MG TAB PO SCH (08:28)
[2019-09-28] MEDS: VIT A,C & E-LUTEIN-MINERALS 1 EACH TAB PO SCH (08:29)
[2019-09-28] MEDS: FORMOTEROL FUMARATE 20 MCG/2 ML NEBU INHALATION SCH ×2 (08:37→19:30)
[2019-09-28] MEDS: BUDESONIDE 1 MG/2 ML NEBU INHALATION SCH ×2 (08:38→19:30)
[2019-09-28] MEDS ORDERED: OSELTAMIVIR 75 MG CAP PO SCH (09:00)
--- NOTE | 2019-09-28 14:48 | P.PN ---
Subjective Progress Note Date: 09/28/19 Principal diagnosis: Influenza A infection, bilateral pneumonia 73-year-old male patient came into the hospital because of worsening shortness of breath. He felt generalized weakness and malaise. Over the past few weeks, the patient had increased cough and congestion and he was having to take antibiotic course of doxycycline and a prednisone burst taper and [id number] medication. He had limited improvement and following that he had seen his primary care physician again for another round of antibiotics which included Z-Miko and prednisone taper. Unfortunately his condition did not improve. He came into the emergency department complaining of tachycardia and his heart rate was racing. He is known to have atrial fibrillation. In the ED, the patient was found to be in atrial fibrillation with rapid ventricular response. His white cell count was slightly elevated at 13. His lactic acid was at 2.8 dropped down to 1.2 with fluid resuscitation. His first set of troponin was negative at 0.01 and second set came back at 0.05. His creatinine is at 1.2. UA shows some mild leukocytosis with a white second of 26 per high- power field. There is +1 protein. Chest x-ray showed no acute cardio pulmonary abnormalities. He is currently bronchospastic and wheezy. He is on room air oxygen. He had a pulmonary function test in our office back in 2019 and his F EV1 was in the order of 78% of predicted. He has a home nebulizer. No other maintenance inhalational treatment for now. No fever. No chills. No his cardiac rhythm is back into normal sinus rhythm for now with frequent PACs. He has not taken any form of long-term anticoagulation. 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 He also has history of melanoma that was resected from the back many years back. No smoking 09/27/2019 on seeing the patient for a follow-up. The patient is feeling better compared to yesterday. Less bronchospastic and wheezy compared to yesterday. He remains on IV Solu-Medrol 40 mg every 8 hours. He is on DuoNeb neb last treatment [id number]. He is back into normal sinus rhythm. He was started on long-term and coagulation with Eliquis by cardiology no is also started on Tambocor. No fever. No chills. No night sweats. No other complaints otherwise for now. On 09/28/2019 patient seen in follow-up on medical surgical floor, she states she is improving, her breathing is easier, she is less weak, and less short of breath, room air pulse ox is 93%, she has been afebrile, influenza screen was negative, patient continues on a combination of Tamiflu Rocephin and Zithromax, sputum culture was sent and is pending at this time, blood culture showed no growth at the 24-hour everardo. These labs have been reviewed, showing white blood cell count of 9.2, hemoglobin of 10.7, serum sodium has improved to 136, potassium is 3.4, the rest of the electrolytes and renal profile are within normal limits, patient is tolerating oral intake, it is improving, no nausea, no vomiting, no diarrhea. Objective - Vital Signs Vital signs: Vital Signs Temp 98.6 F 09/28/19 07:00 Pulse 76 09/28/19 13:45 Resp 18 09/28/19 07:00 BP 130/70 09/28/19 07:00 Pulse Ox 93 L 09/28/19 07:00 Intake & Output 09/27/19 09/28/19 09/28/19 18:59 06:59 18:59 Intake Total 600 540 Balance 600 540 Intake: IV 600 Sodium Chloride 0.9% 1, 600 000 ml @ 75 mls/hr IV . [id number] [facility] Rx#:[id number] Oral 540 Other: # Voids 2 2 1 - Exam GENERAL EXAM: Alert, very pleasant, 84-year-old white female, on room air, with pulse ox of 97%, frequent nonproductive cough comfortable in no apparent distres s. HEAD: Normocephalic/atraumatic. EYES: Normal reaction of pupils, equal size. Conjunctiva pink, sclera white. NOSE: Clear with pink turbinates. THROAT: No erythema or exudates. NECK: No masses, no JVD, no thyroid enlargement, no adenopathy. CHEST: No chest wall deformity. Symmetrical expansion. LUNGS: Equal air entry with crackles bilateral bases and mid lungs CVS: Regular rate and rhythm, normal S1 and S2, no gallops, no murmurs, no rubs ABDOMEN: Soft, nontender. No hepatosplenomegaly, normal bowel sounds, no guarding or rigidity. EXTREMITIES: No clubbing, no edema, no cyanosis, 2+ pulses and upper and lower extremities. MUSCULOSKELETAL: Muscle strength and tone normal. SPINE: No scoliosis or deformity SKIN: No rashes CENTRAL NERVOUS SYSTEM: Alert and oriented -3. No focal deficits, tone is normal in all 4 extremities. PSYCHIATRIC: Alert and oriented -3. Appropriate affect. Intact judgment and insight. - Labs CBC & Chem 7: 09/28/19 06:19 09/28/19 06:19 Labs: Abnormal Lab Results - Last 24 Hours (Table) 09/26/19 09/28/19 09/28/19 Range/Units 15:10 06:19 06:19 Hgb 10.7 L (11.4-16.0) gm/dL Hct 33.3 L (34.0-46.0) % Sodium 136 L (137-145) mmol/L Potassium 3.4 L (3.5-5.1) mmol/L Glucose 108 H (74-99) mg/dL Calcium 7.9 L (8.4-10.2) mg/dL Procalcitonin 0.13 H (0.02-0.09) ng/mL Microbiology - Last 24 Hours (Table) 09/26/19 16:20 Blood Culture - Preliminary Blood No Growth after 24 hours Assessment and Plan Plan: Assessment: #1. Acute bilateral pneumonia, rule out influenza pneumonia, Legionella or atypical pneumonia #2. Right upper lobe mass, rule out neoplastic process, follow with CT chest in the next 24-48 hours #3. Acute influenza infection #4. History of mild intermittent bronchial asthma #5. GERD/reflux #6. Hypertension #7. Hyperlipidemia #8. History of thyroid cancer #9. Macular degeneration #10. History of adrenal cortical hypofunction Plan: We'll continue current medical treatment, sputum culture is pending, patient is afebrile, clinically she feels better, breathing easier, continue with nebulized bronchodilators, complaining of a persistent nonproductive coughing spells, we'll add Robitussin AC. Today's chest x-ray has been reviewed, showing stable findings of subsegmental consolidation relating for pneumonia, and masslike area in the right upper lobe which appears to be stable. Will obtain computed tomography scan of the chest for follow-up I performed a history & physical examination of the patient and discussed their management with my nurse practitioner, Kimberly Mckee. I reviewed the nurse practitioner's note and agree with the documented findings and plan of care. Lung sounds are positive for coarse bilateral crackles. The findings and the impression was discussed with the patient. I attest to the documentation by the nurse practitioner. Time with Patient: Less than 30
--- NOTE | 2019-09-28 14:48 | P.PN ---
Progress Note - Text Progress Note Date: 09/28/19 Chief Complaint: Cough congestion Interval history: This is a very pleasant 84-year-old patient of Dr. Murray. Chronic stable medical conditions include GERD, hypertension, hyperlipidemia, hypothyroid and a formal for arrhythmia for which she takes amiodarone. She follows with the tapping machine operator Dr. Vincent from [place]. Patient accompanied by her daughter. Patient for a week diagnosed with influenza A type unknown. She is having congestion cough. She was given medications including antibiotic and steroids. No fever and chills. Just felt very weak tired rundown decreased appetite and a lot of coughing. Patient had gone down to see Dr. Aguirre earlier today. Reportedly was found to have bilateral infiltrates and was sent in. Feels tired rundown. Admitted with bilateral viral pneumonitis, cannot rule out bacterial infection. Also found to have right upper lobe mass and, asthma exacerbation. Today-decreased cough. Breathing a bit better. Hasn't been out of bed. Eating somewhat better. Review of systems: Was done for constitutional, cardiovascular, GI, pulmonary. relevant finding as above Active Medications Albuterol/Ipratropium (Duoneb 0.5 Mg-3 Mg/3 Ml Soln) 3 ml INHALATION RT-Q4H PRN PRN Reason: Shortness Of Breath Or Wheezing Albuterol/Ipratropium (Duoneb 0.5 Mg-3 Mg/3 Ml Soln) 3 ml INHALATION RT-Q4H [facility] Last Admin: 09/28/19 13:30 Dose: 3 ml Documented by: Amiodarone HCl (Cordarone) 200 mg PO DAILY [facility] Last Admin: 09/28/19 08:28 Dose: 200 mg Documented by: Aspirin (Aspirin) 81 mg PO DAILY [facility] Last Admin: 09/28/19 08:28 Dose: 81 mg Documented by: Atorvastatin Calcium (Lipitor) 40 mg PO DAILY [facility] Last Admin: 09/28/19 08:28 Dose: 40 mg Documented by: Azithromycin (Zithromax) 500 mg PO DAILY@1600 [facility] Last Admin: 09/27/19 16:04 Dose: 500 mg Documented by: Budesonide (Pulmicort) 1 mg INHALATION RT-BID [facility] Last Admin: 09/28/19 08:38 Dose: 1 mg Documented by: Calcium Carbonate/Glycine (Tums) 500 mg PO DAILY [facility] Last Admin: 09/28/19 08:27 Dose: 500 mg Documented by: Ciprofloxacin (Cipro Ophth Soln) 1 drops BOTH EYES Q4HR [facility] Last Admin: 09/28/19 11:08 Dose: 1 drops Documented by: Dicyclomine HCl (Bentyl) 10 mg PO BID PRN PRN Reason: GI Upset Enoxaparin Sodium (Lovenox) 40 mg SQ DAILY [facility] Last Admin: 09/28/19 08:27 Dose: 40 mg Documented by: Formoterol Fumarate (Perforomist) 20 mcg INHALATION RT-BID [facility] Last Admin: 09/28/19 08:37 Dose: 20 mcg Documented by: Sodium Chloride (Saline 0.9%) 1,000 mls @ 75 mls/hr IV .[id number] [facility] Last Admin: 09/28/19 08:26 Dose: 75 mls/hr Documented by: Ceftriaxone Sodium 1 gm/ (Sodium Chloride) 50 mls @ 100 mls/hr IVPB Q24HR [facility] Last Admin: 09/28/19 08:26 Dose: 100 mls/hr Documented by: Ketotifen Fumarate (Zaditor) 1 drops BOTH EYES BID [facility] Last Admin: 09/28/19 08:27 Dose: 1 drops Documented by: Levothyroxine Sodium (Synthroid) 88 mcg PO DAILY@0630 [facility] Last Admin: 09/28/19 05:18 Dose: 88 mcg Documented by: Lisinopril (Zestril) 20 mg PO BID [facility] Last Admin: 09/28/19 08:28 Dose: 20 mg Documented by: Melatonin (Melatonin) 2 mg PO HS [facility] Last Admin: 09/27/19 20:39 Dose: 2 mg Documented by: Metoprolol Tartrate (Lopressor) 75 mg PO BID [facility] Last Admin: 09/28/19 08:28 Dose: 75 mg Documented by: Multivitamins/Minerals (Ivite) 1 each PO DAILY [facility] Last Admin: 09/28/19 08:29 Dose: 1 each Documented by: Oseltamivir Phosphate (Tamiflu) 30 mg PO Q12HR [facility] Stop: 10/02/19 21:01 Pantoprazole Sodium (Protonix) 40 mg PO BID PRN PRN Reason: Heartburn Physical examination: VITAL SIGNS: 98.6, 73, 18, 130/70, 93% room air GENERAL: Propped up in bed, slightly tired EYES: Pupils equal. Conjunctiva normal. HEENT: External appearance of nose and ears normal, oral cavity grossly normal. NECK: JVD not raised; masses not palpable. HEART: First and second heart sounds are normal; no edema. LUNGS: Respiratory rate increased, some decreased breaths, prolonged expiration. ABDOMEN: Soft, nontender, liver spleen not palpable, no masses palpable. PSYCH: Alert and oriented x3; mood and affect slightly anxiousl. 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 INVESTIGATIONS, reviewed in the clinical context: White count 9.2 hemoglobin 10.7 potassium 3.4 creatinine 0.65 White count 13.6 hemoglobin 12.6 potassium 3.8 sodium 126 creatinine 0.69 Chest x-ray film-bilateral infiltrates, 2.8 cm right upper lobe mass reported Pro calcitonin 0.13 Assessment: -Bilateral viral pneumonitis, cannot rule out bacterial infection -Right upper lobe lung mass- -Intermittent asthma with acute exacerbation -GERD -Hyperlipidemia -Essential hypertension -History of arrhythmia for which patient is on amiodarone -Hypothyroid Plan: Patient is clinically doing better. Continue with bronchodilator steroids antibiotics. Computed tomography scan to follow up with the upper lung mass. We will discuss with Dr. Savage.
[2019-09-28] MEDS: AZITHROMYCIN 500 MG TAB PO SCH (15:04)
[2019-09-28] MEDS ORDERED: RX INFO: IV CONTRAST WAS GIVEN 1 EACH MISC MISCELLANE PRN ×2 (15:23→15:26)
--- NOTE | 2019-09-28 20:06 | XR ---
EXAMINATION TYPE: XR chest 2V DATE OF EXAM: 09/28/2019 COMPARISON: 09/28/2019 0634 hours INDICATION: Bilateral pneumonia cough and congestion TECHNIQUE: Frontal and lateral views of the chest are obtained. FINDINGS: The heart size is normal. The pulmonary vasculature is normal. There are patchy infiltrate to the right lung. A left lingular and lower lobe infiltrate is present. Findings are similar to prior exam on the same date. Small left pleural effusion is present. IMPRESSION: 1. Patchy infiltrate within the bilateral lung roman appear similar to prior exam.
[2019-09-28] MEDS: MELATONIN 1 MG TAB PO SCH (21:04)
[2019-09-28] MEDS: OSELTAMIVIR 60 MG/10 ML ORAL SYRINGE PO SCH (21:06)
--- NOTE | 2019-09-28 21:07 | CT ---
EXAMINATION TYPE: CT chest w con DATE OF EXAM: 09/28/2019 COMPARISON: No prior CT, Ultrasound, or MRI available. HISTORY: Pneumonia. CT DLP: 271.5 mGycm. Automated exposure control for dose reduction was used. CONTRAST: CT scan of the chest is performed with IV Contrast, patient injected with 100 mL of Isovue 300. FINDINGS: LUNGS: There are scattered bilateral ill-defined consolidative opacities throughout the lung bases an d midlung zones, consistent with multifocal bronchopneumonia. There is no pulmonary edema. No other pulmonary findings. PLEURAL SPACES: Scant dependent pleural effusion is noted bilaterally. MEDIASTINUM: There is a 1.5 cm short axis right suprahilar lymph node. Mild/moderate cardiomegaly wit h right ventricular and biatrial dilation and with coronary calcifications. No acute aortic or pulmonary arterial findings. OTHER: In the posterior segment of the right hepatic lobe above the level of the pratik hepatis there is a 2 cm low attenuation defect with suggestion of puddling of contrast at the parameter, isodense to aortic blood pool. These findings suggest the diagnosis of cavernous hemangioma, which can be prov en with focal ultrasound. IMPRESSION: MULTIFOCAL BRONCHOPNEUMONIA PATTERN.
[2019-09-28] MEDS: guaiFENesin-Coden 100-10MG/5ML 10 ML CUP PO PRN (23:21)
[2019-09-29] MEDS: IPRATROPIUM-ALBUTEROL 3 ML NEB INHALATION SCH ×4 (00:33→10:53)
[2019-09-29] MEDS: SODIUM CHLORIDE 0.9% 1,000 ML IV SCH ×3 (04:33→21:48)
[2019-09-29] MEDS: CIPROFLOXACIN 0.3% OPHTH SOLN 5 ML BTL BOTH EYES SCH ×5 (04:34→21:43)
[2019-09-29] MEDS: LEVOTHYROXINE 88 MCG TAB PO SCH (06:12)
[2019-09-29] MEDS: BUDESONIDE 1 MG/2 ML NEBU INHALATION SCH ×2 (07:13→20:48)
[2019-09-29] MEDS: FORMOTEROL FUMARATE 20 MCG/2 ML NEBU INHALATION SCH ×2 (07:13→20:48)
[2019-09-29] MEDS: CALCIUM CARBONATE 500 MG CHEWABLE PO SCH (08:55)
[2019-09-29] MEDS: VIT A,C & E-LUTEIN-MINERALS 1 EACH TAB PO SCH (08:55)
[2019-09-29] MEDS: ASPIRIN 81 MG PO SCH (08:55)
[2019-09-29] MEDS: METOPROLOL TARTRATE 25 MG TAB PO SCH ×2 (08:55→21:44)
[2019-09-29] MEDS: LISINOPRIL 20 MG TAB PO SCH ×2 (08:55→21:44)
[2019-09-29] MEDS: AMIODARONE 200 MG TAB PO SCH (08:55)
[2019-09-29] MEDS: ATORVASTATIN 40 MG TAB PO SCH (08:55)
[2019-09-29] MEDS: OSELTAMIVIR 60 MG/10 ML ORAL SYRINGE PO SCH ×2 (08:56→21:44)
[2019-09-29] MEDS: KETOTIFEN 0.025% OPHTH DROPS 5 ML BTL BOTH EYES SCH ×2 (08:56→21:44)
[2019-09-29] MEDS: ENOXAPARIN 40 MG/0.4 ML SYRINGE SQ SCH (09:02)
[2019-09-29] MEDS ORDERED: IPRATROPIUM-ALBUTEROL 3 ML NEB INHALATION PRN (13:58)
--- NOTE | 2019-09-29 14:14 | P.PN ---
<Kimberly Mckee M - Last Filed: 09/29/19 14:11> Subjective Progress Note Date: 09/29/19 Principal diagnosis: Influenza A infection, bilateral pneumonia 73-year-old male patient came into the hospital because of worsening shortness of breath. He felt generalized weakness and malaise. Over the past few weeks, the patient had increased cough and congestion and he was having to take antibiotic course of doxycycline and a prednisone burst taper and [id number]-[id number] medication. He had limited improvement and following that he had seen his primary care physician again for another round of antibiotics which included Z-Miko and prednisone taper. Unfortunately his condition did not improve. He came into the emergency department complaining of tachycardia and his heart rate was racing. He is known to have atrial fibrillation. In the ED, the patient was found to be in atrial fibrillation with rapid ventricular response. His white cell count was slightly elevated at 13. His lactic acid was at 2.8 dropped down to 1.2 with fluid resuscitation. His first set of troponin was negative at 0.01 and second set came back at 0.05. His creatinine is at 1.2. UA shows some mild leukocytosis with a white second of 26 per high- power field. There is +1 protein. Chest x-ray showed no acute cardio pulmonary abnormalities. He is currently bronchospastic and wheezy. He is on room air oxygen. He had a pulmonary function test in our office back in 2018 and his FEV1 was in the order of 78% of predicted. He has a home nebulizer. No other maintenance inhalational treatment for now. No fever. No chills. No his cardiac rhythm is back into normal sinus rhythm for now with frequent PACs. He has not taken any form of long-term anticoagulation. 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 He also has history of melanoma that was resected from the back many years back. No smoking 09/27/2019 on seeing the patient for a follow-up. The patient is feeling better compared to yesterday. Less bronchospastic and wheezy compared to yesterday. He remains on IV Solu-Medrol 40 mg every 8 hours. He is on DuoNeb neb last treatment [id number]. He is back into normal sinus rhythm. He was started on long-term and coagulation with Eliquis by cardiology no is also started on Tambocor. No fever. No chills. No night sweats. No other complaints otherwise for now. On 09/28/2019 patient seen in follow-up on medical surgical floor, she states she is improving, her breathing is easier, she is less weak, and less short of breath, room air pulse ox is 93%, she has been afebrile, influenza screen was negative, patient continues on a combination of Tamiflu Rocephin and Zithromax, sputum culture was sent and is pending at this time, blood culture showed no growth at the 24-hour everardo. These labs have been reviewed, showing white blood cell count of 9.2, hemoglobin of 10.7, serum sodium has improved to 136, potassium is 3.4, the rest of the electrolytes and renal profile are within normal limits, patient is tolerating oral intake, it is improving, no nausea, no vomiting, no diarrhea. On 09/29/2019 patient seen in follow-up on general medical floor, doing well, im proving, breathing easier, no fever, no chills, she remains on a combination Tamiflu, Rocephin and Zithromax, CT chest with contrast was reviewed showing multifocal pneumonia in bilateral lungs. No significant cough or congestion, lung sounds reveal bibasilar crackles, no significant wheezing, patient is complaining of being shaky and this might be related to nebulized albuterol. She has been clinically improving, and we will discontinue scheduled albuterol treatments. Objective - Vital Signs Vital signs: Vital Signs Temp 98.1 F 09/29/19 07:37 Pulse 77 09/29/19 11:04 Resp 18 09/29/19 07:37 BP 153/63 09/29/19 07:37 Pulse Ox 97 09/29/19 07:37 Intake & Output 09/28/19 09/29/19 09/29/19 18:59 06:59 18:59 Other: Voiding Method Toilet # Voids 1 1 - Exam GENERAL EXAM: Alert, very pleasant, 84-year-old white female, on room air, with pulse ox of 97%, frequent nonproductive cough comfortable in no apparent distress. HEAD: Normocephalic/atraumatic. EYES: Normal reaction of pupils, equal size. Conjunctiva pink, sclera white. NOSE: Clear with pink turbinates. THROAT: No erythema or exudates. NECK: No masses, no JVD, no thyroid enlargement, no adenopathy. CHEST: No chest wall deformity. Symmetrical expansion. LUNGS: Equal air entry with crackles bilateral bases and mid lungs CVS: Regular rate and rhythm, normal S1 and S2, no gallops, no murmurs, no rubs ABDOMEN: Soft, nontender. No hepatosplenomegaly, normal bowel sounds, no guarding or rigidity. EXTREMITIES: No clubbing, no edema, no cyanosis, 2+ pulses and upper and lower extremities. MUSCULOSKELETAL: Muscle strength and tone normal. SPINE: No scoliosis or deformity SKIN: No rashes CENTRAL NERVOUS SYSTEM: Alert and oriented -3. No focal deficits, tone is normal in all 4 extremities. PSYCHIATRIC: Alert and oriented -3. Appropriate affect. Intact judgment and insight. - Labs CBC & Chem 7: 09/28/19 06:19 09/28/19 06:19 Labs: Microbiology - Last 24 Hours (Table) 09/28/19 11:00 Gram Stain - Preliminary Sputum 09/26/19 16:20 Blood Culture - Preliminary Blood No Growth after 48 hours Assessment and Plan Plan: Assessment: #1. Acute bilateral pneumonia, rule out influenza pneumonia, Legionella or atypical pneumonia #2. Right upper lobe mass, rule out neoplastic process, follow with CT chest in the next 24-48 hours #3. Acute influenza infection #4. History of mild intermittent bronchial asthma #5. GERD/reflux #6. Hypertension #7. Hyperlipidemia #8. History of thyroid cancer #9. Macular degeneration #10. History of adrenal cortical hypofunction Plan: Continue current medical treatment, patient is completing a course of Tamiflu, Rocephin and Zithromax, cultures including sputum and blood are negative thus far, patient retested for influenza and that was negative, urine Legionella antigen was negative, she is clinically improving, no fever or chills, we'll discontinue albuterol nebulized treatments related to patient's tremors. We'll repeat chest x-ray in the morning and may consider discharge home within the next 24 hours, CT of the chest with contrast was reviewed showing multifocal pneumonia. I performed a history & physical examination of the patient and discussed their management with my nurse practitioner, Kimberly Mckee. I reviewed the nurse practitioner's note and agree with the documented findings and plan of care. Lung sounds are positive for coarse bilateral crackles. The findings and the impression was discussed with the patient. I attest to the documentation by the nurse practitioner. Time with Patient: Less than 30 <Jose M Savage - Last Filed: 09/29/19 14:56> Subjective On 09/29/2016 the patient for a follow-up. As mentioned earlier, the patient had an influenza and pulmonary infection and subsequent development of pulmonary infiltrates. Most recent insulin 15 that was done on the hospital was negative, likely one that was done at the outside hospital. In any rate, chest x-ray arjun wed bilateral pulmonary infiltrates. CAT scan of the chest was done that showed pulmonary infiltrates consistent with pneumonia. The patient has no fever or chills. She was getting a bit jittery and tachycardic and restless because of the use of bronchodilator treatment. She has no active bronchospasm or wheezing. She is currently on room air. White cell count from yesterday was down to 9. No other significant events overnight and the patient is resting comfortably in bed for now. No other significant events overnight. She remains on a combination of Rocephin and Zithromax for now. The patient will be kept on same treatment for now and she'll be reevaluated in a.m. with another chest x- ray. We will make further recommendations accordingly. She was reassured and the development of the chest. Objective - Vital Signs Vital signs: Vital Signs Temp 98.1 F 09/29/19 07:37 Pulse 77 09/29/19 11:04 Resp 18 09/29/19 07:37 BP 153/63 09/29/19 07:37 Pulse Ox 97 09/29/19 07:37 Intake & Output 09/28/19 09/29/19 09/29/19 18:59 06:59 18:59 Other: Voiding Method Toilet # Voids 1 1 3 - Labs CBC & Chem 7: 09/28/19 06:19 09/28/19 06:19 Labs: Microbiology - Last 24 Hours (Table) 09/28/19 11:00 Gram Stain - Preliminary Sputum 09/26/19 16:20 Blood Culture - Preliminary Blood No Growth after 48 hours
[2019-09-29] MEDS: AZITHROMYCIN 500 MG TAB PO SCH (16:02)
[2019-09-29] MEDS: MELATONIN 1 MG TAB PO SCH (21:44)
--- NOTE | 2019-09-29 22:42 | P.PN ---
Progress Note - Text Progress Note Date: 09/29/19 Chief Complaint: Cough congestion Interval history: This is a very pleasant 84-year-old patient of Dr. Murray. Chronic stable medical conditions include GERD, hypertension, hyperlipidemia, hypothyroid and a formal for arrhythmia for which she takes amiodarone. She follows with the baker head Dr. Vincent from [place]. Patient accompanied by her daughter. Patient for a week diagnosed with influenza A type unknown. She is having congestion cough. She was given medications including antibiotic and steroids. No fever and chills. Just felt very weak tired rundown decreased appetite and a lot of coughing. Patient had gone down to see Dr. Aguirre earlier today. Reportedly was found to have bilateral infiltrates and was sent in. Feels tired rundown. Admitted with bilateral viral pneumonitis, cannot rule out bacterial infection. Also found to have right upper lobe mass and, asthma exacerbation. Today-Intermittent cough. Breathing much better. Tolerated diet. Does get tachycardic with bronchodilators.. . Patient's daughter the bedside. Review of systems: Was done for constitutional, cardiovascular, GI, pulmonary. relevant finding as above Active Medications Albuterol/Ipratropium (Duoneb 0.5 Mg-3 Mg/3 Ml Soln) 3 ml INHALATION RT-Q4H PRN PRN Reason: Cough Amiodarone HCl (Cordarone) 200 mg PO DAILY [facility] Last Admin: 09/29/19 08:55 Dose: 200 mg Documented by: Aspirin (Aspirin) 81 mg PO DAILY [facility] Last Admin: 09/29/19 08:55 Dose: 81 mg Documented by: Atorvastatin Calcium (Lipitor) 40 mg PO DAILY [facility] Last Admin: 09/29/19 08:55 Dose: 40 mg Documented by: Azithromycin (Zithromax) 500 mg PO DAILY@1600 [facility] Last Admin: 09/29/19 16:02 Dose: 500 mg Documented by: Budesonide (Pulmicort) 1 mg INHALATION RT-BID [facility] Last Admin: 09/29/19 20:48 Dose: Not Given Documented by: Calcium Carbonate/Glycine (Tums) 500 mg PO DAILY [facility] Last Admin: 09/29/19 08:55 Dose: 500 mg Documented by: Ciprofloxacin (Cipro Ophth Soln) 1 drops BOTH EYES Q4HR [facility] Last Admin: 09/29/19 21:43 Dose: 1 drops Documented by: Dicyclomine HCl (Bentyl) 10 mg PO BID PRN PRN Reason: GI Upset Enoxaparin Sodium (Lovenox) 40 mg SQ DAILY [facility] Last Admin: 09/29/19 09:02 Dose: 40 mg Documented by: Formoterol Fumarate (Perforomist) 20 mcg INHALATION RT-BID [facility] Last Admin: 09/29/19 20:48 Dose: Not Given Documented by: Guaifenesin/Codeine Phosphate (Robitussin Ac) 10 ml PO TID PRN PRN Reason: Cough Last Admin: 09/28/19 23:21 Dose: 10 ml Documented by: Sodium Chloride (Saline 0.9%) 1,000 mls @ 75 mls/hr IV .[id number] [facility] Last Admin: 09/29/19 21:48 Dose: 75 mls/hr Documented by: Ceftriaxone Sodium 1 gm/ (Sodium Chloride) 50 mls @ 100 mls/hr IVPB Q24HR [facility] Last Admin: 09/29/19 08:55 Dose: 100 mls/hr Documented by: Ketotifen Fumarate (Zaditor) 1 drops BOTH EYES BID [facility] Last Admin: 09/29/19 21:44 Dose: 1 drops Documented by: Levothyroxine Sodium (Synthroid) 88 mcg PO DAILY@0630 [facility] Last Admin: 09/29/19 06:12 Dose: 88 mcg Documented by: Lisinopril (Zestril) 20 mg PO BID [facility] Last Admin: 09/29/19 21:44 Dose: 20 mg Documented by: Melatonin (Melatonin) 2 mg PO HS [facility] Last Admin: 09/29/19 21:44 Dose: 2 mg Documented by: Metoprolol Tartrate (Lopressor) 75 mg PO BID [facility] Last Admin: 09/29/19 21:44 Dose: 75 mg Documented by: Miscellaneous Information (Rx Info: Iv Contrast Was Given) 1 each MISCELLANE DAILY PRN PRN Reason: Per Protocol Stop: 09/30/19 15:23 Miscellaneous Information (Rx Info: Iv Contrast Was Given) 1 each MISCELLANE DAILY PRN PRN Reason: Per Protocol Stop: 09/30/19 15:26 Multivitamins/Minerals (Ivite) 1 each PO DAILY [facility] Last Admin: 09/29/19 08:55 Dose: 1 each Documented by: Oseltamivir Phosphate (Tamiflu) 30 mg PO Q12HR [facility] Stop: 10/02/19 21:01 Last Admin: 09/29/19 21:44 Dose: 30 mg Documented by: Pantoprazole Sodium (Protonix) 40 mg PO BID PRN PRN Reason: Heartburn Physical examination: VITAL SIGNS: 98, 67, 17, 165 was 73, 95% room air GENERAL: Propped up in bed, comfortable EYES: Pupils equal. Conjunctiva normal. HEENT: External appearance of nose and ears normal, oral cavity grossly normal. NECK: JVD not raised; masses not palpable. HEART: First and second heart sounds are normal; no edema. LUNGS: Respiratory rate increased, some decreased breaths, prolonged expiration. ABDOMEN: Soft, nontender, liver spleen not palpable, no masses palpable. PSYCH: Alert and oriented x3; mood and affect slightly anxiousl. 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 INVESTIGATIONS, reviewed in the clinical context: Computed tomography scan of the chest-suggestive of multiple scattered i nfectible obesities Previous testing White count 13.6 hemoglobin 12.6 potassium 3.8 sodium 126 creatinine 0.69 Chest x-ray film-bilateral infiltrates, 2.8 cm right upper lobe mass reported Pro calcitonin 0.13 Assessment: -Bilateral viral pneumonitis, cannot rule out bacterial infection, clinical improvement -Right upper lobe lung mass- -Intermittent asthma with acute exacerbation -GERD -Hyperlipidemia -Essential hypertension -History of arrhythmia for which patient is on amiodarone -Hypothyroid Plan: Continue current medication treatment plan. Clinically doing better. Cut back on bronchodilators. Continue with antibiotics. We'll discuss with pulmonary. If okay hopefully discharge tomorrow. Repeat pro calcitonin the morning.
[2019-09-30] MEDS: CIPROFLOXACIN 0.3% OPHTH SOLN 5 ML BTL BOTH EYES SCH ×5 (01:02→15:50)
[2019-09-30] MEDS: guaiFENesin-Coden 100-10MG/5ML 10 ML CUP PO PRN (01:02)
[2019-09-30] MEDS: LEVOTHYROXINE 88 MCG TAB PO SCH (05:21)
--- NOTE | 2019-09-30 07:13 | XR ---
EXAMINATION TYPE: XR chest 2V DATE OF EXAM: 09/30/2019 HISTORY: multifocal pneumonia. REFERENCE: Previous study dated 09/28/2019. FINDINGS: There is patchy bilateral airspace disease. This is not significantly changed from previous . There is a left-sided effusion. The heart is not enlarged. IMPRESSION: CONTINUING PATCHY BILATERAL PNEUMONIAS WITH A SMALL CONCOMITANT LEFT-SIDED EFFUSION.
[2019-09-30] MEDS: FORMOTEROL FUMARATE 20 MCG/2 ML NEBU INHALATION SCH (07:21)
[2019-09-30] MEDS: BUDESONIDE 1 MG/2 ML NEBU INHALATION SCH (07:21)
[2019-09-30] MEDS: ASPIRIN 81 MG PO SCH (08:30)
[2019-09-30] MEDS: METOPROLOL TARTRATE 25 MG TAB PO SCH (08:30)
[2019-09-30] MEDS: LISINOPRIL 20 MG TAB PO SCH (08:31)
[2019-09-30] MEDS: CALCIUM CARBONATE 500 MG CHEWABLE PO SCH (08:31)
[2019-09-30] MEDS: VIT A,C & E-LUTEIN-MINERALS 1 EACH TAB PO SCH (08:32)
[2019-09-30] MEDS: AMIODARONE 200 MG TAB PO SCH (08:32)
[2019-09-30] MEDS: ENOXAPARIN 40 MG/0.4 ML SYRINGE SQ SCH (08:32)
[2019-09-30] MEDS: ATORVASTATIN 40 MG TAB PO SCH (08:32)
[2019-09-30] MEDS: KETOTIFEN 0.025% OPHTH DROPS 5 ML BTL BOTH EYES SCH (08:33)
[2019-09-30] MEDS: OSELTAMIVIR 60 MG/10 ML ORAL SYRINGE PO SCH (08:36)
--- NOTE | 2019-09-30 13:13 | P.PN ---
Subjective Progress Note Date: 09/30/19 Principal diagnosis: Bilateral pneumonia 73-year-old male patient came into the hospital because of worsening shortness of breath. He felt generalized weakness and malaise. Over the past few weeks, the patient had increased cough and congestion and he was having to take antibi otic course of doxycycline and a prednisone burst taper and ewom-bbx-zdylawy medication. He had limited improvement and following that he had seen his primary care physician again for another round of antibiotics which included Z- Miko and prednisone taper. Unfortunately his condition did not improve. He came into the emergency department complaining of tachycardia and his heart rate was racing. He is known to have atrial fibrillation. In the ED, the patient was found to be in atrial fibrillation with rapid ventricular response. His white cell count was slightly elevated at 13. His lactic acid was at 2.8 dropped down to 1.2 with fluid resuscitation. His first set of troponin was negative at 0.01 and second set came back at 0.05. His creatinine is at 1.2. UA shows some mild leukocytosis with a white second of 26 per high-power field. There is +1 protein. Chest x-ray showed no acute cardio pulmonary abnormalities. He is currently bronchospastic and wheezy. He is on room air oxygen. He had a pulmonary function test in our office back in 2019 and his FEV1 was in the order of 78% of predicted. He has a home nebulizer. No other maintenance inhalational treatment for now. No fever. No chills. No his cardiac rhythm is back into normal sinus rhythm for now with frequent PACs. He has not taken any form of long-term anticoagulation. 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 He also has history of melanoma that was resected from the back many years back. No smoking 09/27/2019 on seeing the patient for a follow-up. The patient is feeling better compared to yesterday. Less bronchospastic and wheezy compared to yesterday. He remains on IV Solu-Medrol 40 mg every 8 hours. He is on DuoNeb neb last treatment [id number]. He is back into normal sinus rhythm. He was started on long-term and coagulation with Eliquis by cardiology no is also started on Tambocor. No fever. No chills. No night sweats. No other complaints otherwise for now. On 09/28/2019 patient seen in follow-up on medical surgical floor, she states she is improving, her breathing is easier, she is less weak, and less short of breath, room air pulse ox is 93%, she has been afebrile, influenza screen was negative, patient continues on a combination of Tamiflu Rocephin and Zithromax, sputum culture was sent and is pending at this time, blood culture showed no growth at the 24-hour everardo. These labs have been reviewed, showing white blood cell count of 9.2, hemoglobin of 10.7, serum sodium has improved to 136, potassium is 3.4, the rest of the electrolytes and renal profile are within normal limits, patient is tolerating oral intake, it is improving, no nausea, no vomiting, no diarrhea. On 09/29/2019 patient seen in follow-up on general medical floor, doing well, improving, breathing easier, no fever, no chills, she remains on a combination Tamiflu, Rocephin and Zithromax, CT chest with contrast was reviewed showing multifocal pneumonia in bilateral lungs. No significant cough or congestion, lung sounds reveal bibasilar crackles, no significant wheezing, patient is complaining of being shaky and this might be related to nebulized albuterol. She has been clinically improving, and we will discontinue scheduled albuterol treatments. The patient is seen today 09/30/2019 in follow-up on the regular medical floor. She is currently resting quite comfortably in bed. Awake and alert in no acute distress. Just an occasional loose cough. No fever, chills or night sweats. Lungs are sounding clear. Chest x-ray still showing bilateral patchy infiltrate s with left pleural effusion. His maintaining good O2 saturations in the 90s on room air. She's afebrile. Hemodynamically stable. Blood and sputum cultures reveal no growth. Calcitonin 0.07. He remains on ceftriaxone, and azithromycin. DVT prophylaxis with Lovenox. Objective - Vital Signs Vital signs: Vital Signs Temp 97.8 F 09/30/19 07:18 Pulse 61 09/30/19 10:23 Resp 16 09/30/19 07:18 BP 165/73 09/30/19 10:23 Pulse Ox 94 L 09/30/19 07:18 Intake & Output 09/29/19 09/30/19 09/30/19 18:59 06:59 18:59 Intake Total 600 Balance 600 Intake: Intake, IV Titration 600 Amount Sodium Chloride 0.9% 1, 600 000 ml @ 75 mls/hr IV . [id number] [facility] Rx#:[id number] Other: Voiding Method Toilet Toilet # Voids 3 - Exam GENERAL EXAM: Alert, very pleasant, 84-year-old white female, on room air, frequent nonproductive cough comfortable in no apparent distress. HEAD: Normocephalic/atraumatic. EYES: Normal reaction of pupils, equal size. Conjunctiva pink, sclera white. NOSE: Clear with pink turbinates. THROAT: No erythema or exudates. NECK: No masses, no JVD, no thyroid enlargement, no adenopathy. CHEST: No chest wall deformity. Symmetrical expansion. LUNGS: Equal air entry with no rhonchi, crackles, wheeze or dullness CVS: Regular rate and rhythm, normal S1 and S2, no gallops, no murmurs, no rubs ABDOMEN: Soft, nontender. No hepatosplenomegaly, normal bowel sounds, no guarding or rigidity. EXTREMITIES: No clubbing, no edema, no cyanosis, 2+ pulses and upper and lower extremities. MUSCULOSKELETAL: Muscle strength and tone normal. SPINE: No scoliosis or deformity SKIN: No rashes CENTRAL NERVOUS SYSTEM: Alert and oriented -3. No focal deficits, tone is normal in all 4 extremities. PSYCHIATRIC: Alert and oriented -3. Appropriate affect. Intact judgment and insight. - Labs CBC & Chem 7: 09/28/19 06:19 09/28/19 06:19 Labs: Microbiology - Last 24 Hours (Table) 09/28/19 11:00 Gram Stain - Final Sputum Sputum Culture - Final 09/26/19 16:20 Blood Culture - Preliminary Blood No Growth after 72 hours Assessment and Plan Assessment: #1. Acute bilateral pneumonia, and cultures reveal no growth. Influenza screen negative. Legionella screen negative. Calcitonin 0.07. #2. Right upper lobe mass, rule out neoplastic process, follow with CT chest in the next 24-48 hours #3. Acute influenza infection follow-up screening negative #4. History of mild intermittent bronchial asthma #5. GERD/reflux #6. Hypertension #7. Hyperlipidemia #8. History of thyroid cancer #9. Macular degeneration #10. History of adrenal cortical hypofunction Plan: The patient was seen and evaluated by Dr. Savage. Chest x-ray and labs reviewed. She is improved clinically however her x-ray is lagging behind. Calcitonin 0.07. Legionella screen negative. Influenza screen negative. Sputum and blood cultures reveal no growth. Continued on ceftriaxone and azit hromycin. I, the cosigning physician, performed a history & physical examination of the patient. Lungs sounds are clear. Maintaining good O2 saturations in the 90s on room air. I discussed the assessment and plan of care with my nurse practitioner, Alexia Goldstein. I attest to the above note as dictated by her.
[2019-09-30] MEDS: AZITHROMYCIN 500 MG TAB PO SCH (15:50)
[2019-09-30 15:51] VITALS: BP 150/68; PULSE 70; RESP 15; TEMP 98.1
[2019-09-30] MEDS: SODIUM CHLORIDE 0.9% 1,000 ML IV SCH (15:53)
--- NOTE | 2019-10-01 00:15 | P.DS ---
Providers Date of admission: 09/26/19 16:44 Expected date of discharge: 09/30/19 Attending physician: Augustin Guardado Consults: 09/26/19 16:04 Consult Physician Routine Consulting Provider: Farzad Fletcher Consult Reason/Comments: COPD, PNA Do you want consulting provider notified?: Already Contacted Primary care physician: Alex Murray [facility] Course: Chief Complaint: Cough congestion Interval history: This is a very pleasant 84-year-old patient of Dr. Murray. Chronic stable medical conditions include GERD, hypertension, hyperlipidemia, hypothyroid and a formal for arrhythmia for which she takes amiodarone. She follows with the party director Dr. Vincent from [place]. Patient accompanied by her daughter. Patient for a week diagnosed with influenza A type unknown. She is having congestion cough. She was given medications including antibiotic and steroids. No fever and chills. Just felt very weak tired rundown decreased a ppetite and a lot of coughing. Patient had gone down to see Dr. Aguirre earlier today. Reportedly was found to have bilateral infiltrates and was sent in. Feels tired rundown. Admitted with bilateral viral pneumonitis, cannot rule out bacterial infection. asthma exacerbation.CT chest showed scattered infiltrates. Responded well to bronchodilators, antibioticsincluding ceftriaxone and ciprofloxacin. Today-feeling better. Up and about. Appetite improved. Okayed by Dr. Savage to be discharged Consultation: Dr. Savage from pulmonary Physical examination: VITAL SIGNS: 97.8, 64, 16, 150/68, 95% room air GENERAL: Propped up in bed, comfortable EYES: Pupils equal. Conjunctiva normal. HEENT: External appearance of nose and ears normal, oral cavity grossly normal. NECK: JVD not raised; masses not palpable. HEART: First and second heart sounds are normal; no edema. LUNGS: Respiratory rate normal, improved air entry ABDOMEN: Soft, nontender, liver spleen not palpable, no masses palpable. PSYCH: Alert and oriented x3; mood and affect slightly anxiousl. 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 INVESTIGATIONS, reviewed in the clinical context: Computed tomography scan of the chest-suggestive of multiple scattered infectible infiltrate Previous testing White count 13.6 hemoglobin 12.6 potassium 3.8 sodium 126 creatinine 0.69 Chest x-ray film-bilateral infiltrates, 2.8 cm right upper lobe mass reported Pro calcitonin 0.13 Assessment: -Bilateral viral pneumonitis, cannot rule out bacterial infection, clinical improvement -Intermittent asthma with acute exacerbation -GERD -Hyperlipidemia -Essential hypertension -History of arrhythmia for which patient is on amiodarone -Hypothyroid disposition: Home Patient Condition at Discharge: Stable Plan - Discharge Summary Discharge Rx Participant: Yes New Discharge Prescriptions: New Ipratropium [place] [Atrovent Hfa] 2 puff INHALATION QID #1 inhaler Cefuroxime Axetil [Ceftin] 500 mg PO BID 3 Days #6 tab Ciprofloxacin Ophth Soln [Ciloxan 0.3% Ophth Soln] 1 drops BOTH EYES Q4HR ml Albuterol Inhaler [Ventolin Hfa Inhaler] 1 - 2 puff INHALATION Q6HR PRN #1 inhaler PRN Reason: Wheezing Lisinopril-Hctz 20-12.5 mg [Zestoretic 20-12.5] 1 tab PO BID #60 tab Azithromycin [Zithromax] 500 mg PO DAILY@1600 #3 tab Continue Levothyroxine Sodium [Synthroid] 88 mcg PO DAILY Metoprolol Tartrate [Lopressor] 75 mg PO BID Amiodarone [Cordarone] 200 mg PO DAILY Denosumab [Prolia] 60 mg SQ Q180D Restful Sleep 1 tab PO HS PRN PRN Reason: Insomnia Pantoprazole Sodium [Protonix] 40 mg PO BID PRN PRN Reason: Heartburn Dicyclomine [Bentyl] 10 mg PO BID PRN PRN Reason: Gi Upset Calcium Carbonate [Calcium] 600 mg PO DAILY Vit C/E/Zn/Coppr/Lutein/Zeaxan [Preservision Areds 2 Softgel] 1 cap PO BID Olopatadine HCl [Patanol] 1 drop BOTH EYES BID Cholecalciferol (Vitamin D3) [Vitamin D3] 2,000 unit PO DAILY Atorvastatin [Lipitor] 40 mg PO DAILY Aspirin EC [Ecotrin Low Dose] 81 mg PO DAILY Discontinued Promethaz-Cod 6.25-10 mg/5 ml [Phenergan with Codeine] 5 ml PO Q6H PRN PRN Reason: Cough guaiFENesin SYRUP 100MG/5ML [Robitussin] 200 mg PO Q6H PRN PRN Reason: Cough Cephalexin [Keflex] 500 mg PO Q8H Benzonatate [Tessalon Perles] 200 mg PO TID PRN PRN Reason: Cough Hydrochlorothiazide 25 mg PO DAILY PRN PRN Reason: HIGH BP Lisinopril 20 mg PO BID Discharge Medication List Amiodarone [Cordarone] 200 mg PO DAILY 09/26/19 [History] Aspirin EC [Ecotrin Low Dose] 81 mg PO DAILY 09/26/19 [History] Atorvastatin [Lipitor] 40 mg PO DAILY 09/26/19 [History] Calcium Carbonate [Calcium] 600 mg PO DAILY 09/26/19 [History] Cholecalciferol (Vitamin D3) [Vitamin D3] 2,000 unit PO DAILY 09/26/19 [History] Denosumab [Prolia] 60 mg SQ Q180D 09/26/19 [History] Dicyclomine [Bentyl] 10 mg PO BID PRN 09/26/19 [History] Levothyroxine Sodium [Synthroid] 88 mcg PO DAILY 09/26/19 [History] Metoprolol Tartrate [Lopressor] 75 mg PO BID 09/26/19 [History] Olopatadine HCl [Patanol] 1 drop BOTH EYES BID 09/26/19 [History] Pantoprazole Sodium [Protonix] 40 mg PO BID PRN 09/26/19 [History] Restful Sleep 1 tab PO HS PRN 09/26/19 [History] Vit C/E/Zn/Coppr/Lutein/Zeaxan [Preservision Areds 2 Softgel] 1 cap PO BID 09/26/19 [History] Albuterol Inhaler [Ventolin Hfa Inhaler] 1 - 2 puff INHALATION Q6HR PRN #1 inhaler 09/30/19 [Rx] Azithromycin [Zithromax] 500 mg PO DAILY@1600 #3 tab 09/30/19 [Rx] Cefuroxime Axetil [Ceftin] 500 mg PO BID 3 Days #6 tab 09/30/19 [Rx] Ciprofloxacin Ophth Soln [Ciloxan 0.3% Ophth Soln] 1 drops BOTH EYES Q4HR ml 09/30/19 [Rx] Ipratropium [place] [Atrovent Hfa] 2 puff INHALATION QID #1 inhaler 09/30/19 [Rx] Lisinopril-Hctz 20-12.5 mg [Zestoretic 20-12.5] 1 tab PO BID #60 tab 09/30/19 [Rx] Follow up Appointment(s)/Referral(s): Farzad Fletcher MD [STAFF PHYSICIAN] - 1 Week Alex Murray MD [Primary Care Provider] - 1-2 days Patient Instructions/Handouts: COPD (Chronic Obstructive Pulmonary Disease) (DC) Discharge Disposition: HOME SELF-CARE
--- NOTE | 2019-10-05 11:24 | CDI ---
Documentation Clarification Form Date: 10/05/19 From: Dyana Todd Phone: If you have a question about this query, please contact Day Trevizo, Wire Straightener at [phone] between 8am and 5pm. Admit Date: 09/26/19 Discharge Date: 09/30/19 Patient Name: Kristel Malloy Visit Number: [id number] ATTENTION: The Clinical Documentation Specialists (CDI) and [facility] Coding Staff appreciate your assistance in clarifying documentation. Please respond to the clarification below the line at the bottom and electronically sign. The CDI & [facility] Coding staff will review the response and follow-up if needed. Please note: Queries are made part of the Legal Health Record. If you have any questions, please contact the author of this message via ITS. Dear Dr. Augustin Guardado, Atrial Fibrillation is documented in the PNs 09/28, 09/29 09/30. History/Risk Factors: HTN, hyperlipidemia, hypothyroidism s/p removal of thyroid, GERD Clinical Indicators: She was found to be in atrial fib w RVR in the ED. EKG: Normal sinus rhythm Treatment: Amiodarone 200 mg po daily, In your professional opinion, can you please clarify the type of Atrial Fibrillation, if known? Chronic Permanent Paroxysmal Persistent, longstanding Persistent, other Persistent, chronic Persistent, permanent Other, please specify Unable to determine Unable to determine MTDD
== END 2019-09-30 17:33 | disposition home or self-care (01) | DRG 194 ==
LOC: EC 15:08 → 4SSUR 16:44
PROVIDERS: ADMIT Hospitalist; ATTEND Hospitalist
DX: J10.08 Influenza due to other identified influenza virus with other specified pneumonia (principal); E27.40 Unspecified adrenocortical insufficiency; Z94.81 Bone marrow transplant status; J90 Pleural effusion, not elsewhere classified; J12.9 Viral pneumonia, unspecified; J45.21 Mild intermittent asthma with (acute) exacerbation; J44.0 Chronic obstructive pulmonary disease with (acute) lower respiratory infection; J44.1 Chronic obstructive pulmonary disease with (acute) exacerbation; I48.91 Unspecified atrial fibrillation; G43.909 Migraine, unspecified, not intractable, without status migrainosus; E89.0 Postprocedural hypothyroidism; K21.9 Gastro-esophageal reflux disease without esophagitis; E78.5 Hyperlipidemia, unspecified; I10 Essential (primary) hypertension; H35.30 Unspecified macular degeneration; R91.8 Other nonspecific abnormal finding of lung field; Z79.82 Long term (current) use of aspirin; Z79.890 Hormone replacement therapy; Z79.899 Other long term (current) drug therapy; Z85.79 Personal history of other malignant neoplasms of lymphoid, hematopoietic and related tissues; Z90.710 Acquired absence of both cervix and uterus; Z90.5 Acquired absence of kidney; Z85.850 Personal history of malignant neoplasm of thyroid; Z96.659 Presence of unspecified artificial knee joint; Z85.820 Personal history of malignant melanoma of skin; Z98.890 Other specified postprocedural states; Z88.1 Allergy status to other antibiotic agents; Z88.5 Allergy status to narcotic agent; Z88.0 Allergy status to penicillin; Z88.8 Allergy status to other drugs, medicaments and biological substances; Z82.49 Family history of ischemic heart disease and other diseases of the circulatory system; Z82.3 Family history of stroke; Z80.3 Family history of malignant neoplasm of breast
CPT/HCPCS: 36415; 71046; 71260; 80048; 80053; 83605; 83735; 84145; 85025; 85027; 87040; 87070; 87205; 87449; 87502; 93005; 94640; 94760; 96365; 96366; 99214; 99285

== ENCOUNTER → 2019-10-10 | Outpatient (CLI) | payer MEDICARE, BC ==
[2019-10-11 03:12] LABS: African American GFR (CKD) 44.2 (60.0-200.0); Anion Gap 9.4 mmol/L (4.00-12.00); BUN/Creat Ratio 18.46 Ratio (12.00-20.00); Calcium 9.6 mg/dL (8.7-10.3); Carbon Dioxide 29.6 mmol/L (21.6-31.8); Non-African American GFR(CKD) 38.2 (60.0-200.0); Potassium 4.4 mmol/L (3.5-5.5)
== END | disposition home or self-care (01) ==
LOC: LABWHC1 14:27
PROVIDERS: ATTEND Internal Medicine
DX: E87.1 Hypo-osmolality and hyponatremia (principal); E03.9 Hypothyroidism, unspecified; E27.40 Unspecified adrenocortical insufficiency; R53.1 Weakness
CPT/HCPCS: 36415; 80048; 82533

== ENCOUNTER 2020-03-19 09:58 | Emergency (ER) | payer MEDICARE, BC ==
[2020-03-19 10:20] VITALS: RESP 18; TEMP 97.5
[2020-03-19] MEDS ORDERED: hydrALAZINE HCL 20 MG/ML 1 ML VIAL IVP STA (10:33)
[2020-03-19] MEDS ORDERED: SODIUM CHLORIDE 0.9% 500 ML 500 ML IV ONE (10:33)
--- NOTE | 2020-03-19 10:35 | ED ---
General Adult HPI - General Chief complaint: Recheck/Abnormal Lab/Rx Stated complaint: High BP Time Seen by Provider: 03/19/20 10:22 Source: patient, RN notes reviewed Mode of arrival: ambulatory Limitations: no limitations - History of Present Illness Initial comments: 85-year-old female presents emergency Department with chief complaint of high blood pressure. Patient states she was at the hospital for her regular injection and an ultrasound. Patient states that they took her blood pressure was noted to be over 200 systolic. Patient states that she has no current complaints denies headache dizziness blurred vision chest pain shortness breath nausea vomiting. Patient states she does have some chronic dizziness though she has no current symptoms. Patient does state that she took her medication for her blood pressure at approximately 940am. Patient states this is later than usual. Patient states she had to be nothing by mouth for her testing. Patient does have medication for her blood pressure is elevated even after taking her normal doses but states that she does not have that with her. Denies any leg swelling no leg pain - Related Data Home Medications Medication Instructions Recorded Confirmed Amiodarone [Cordarone] 100 mg PO DAILY 09/26/19 03/19/20 Aspirin EC [Ecotrin Low Dose] 81 mg PO DAILY 09/26/19 03/19/20 Atorvastatin [Lipitor] 40 mg PO DAILY 09/26/19 03/19/20 Calcium Carbonate [Calcium] 600 mg PO DAILY 09/26/19 03/19/20 Cholecalciferol (Vitamin D3) 2,000 unit PO DAILY 09/26/19 03/19/20 [Vitamin D3] Dicyclomine [Bentyl] 10 mg PO BID PRN 09/26/19 03/19/20 Levothyroxine Sodium [Synthroid] 88 mcg PO DAILY 09/26/19 03/19/20 Metoprolol Tartrate [Lopressor] 75 mg PO BID 09/26/19 03/19/20 Olopatadine HCl [Patanol] 1 drop BOTH EYES BID 09/26/19 03/19/20 Pantoprazole Sodium [Protonix] 40 mg PO DAILY PRN 09/26/19 03/19/20 Vit C/E/Zn/Coppr/Lutein/Zeaxan 1 cap PO BID 09/26/19 03/19/20 [Preservision Areds 2 Softgel] Lisinopril 20 mg PO BID 03/19/20 03/19/20 amLODIPine [Norvasc] 5 mg PO DAILY 03/19/20 03/19/20 Allergies Allergy/AdvReac Type Severity Reaction Status Date / Time celecoxib [From Celebrex] Allergy Rash/Hives Verified 03/19/20 10:21 gatifloxacin [From Tequin] Allergy Rash/Hives Verified 03/19/20 10:21 naproxen [From Naprelan] Allergy Rash/Hives Verified 03/19/20 10:21 ampicillin AdvReac Nausea & Verified 03/19/20 10:21 Vomiting hydrocortisone [From Cortef] AdvReac adrenal Verified 03/19/20 10:21 glands shut down from injections meperidine [From Demerol] AdvReac passed out Verified 03/19/20 10:21 Review of Systems ROS Statement: Those systems with pertinent positive or pertinent negative responses have been documented in the HPI. ROS Other: All systems not noted in ROS Statement are negative. Past Medical History Past Medical History: Asthma, Cancer, GERD/Reflux, Hyperlipidemia, Hypertension, Thyroid Disorder Additional Past Medical History / Comment(s): macular degeneration, SVT, thyroid cancer. WORK UP BEING DONE FOR AORTIC ANEURYSM. OSTEOPOROSIS. History of Any Multi-Drug Resistant Organisms: None Reported Past Surgical History: Adenoidectomy, Appendectomy, Hysterectomy Additional Past Surgical History / Comment(s): thyroid removal, removal of part of right kidney, back surgery, knee surgery replacement, shoulder surgery Additional Past Anesthesia/Blood Transfusion Reaction / Comment(s): Anesthesia takes a while to wake up Past Psychological History: No Psychological Hx Reported Smoking Status: Never smoker Past Alcohol Use History: None Reported Past Drug Use History: None Reported - Past Family History Mother Family Medical History: Cancer Additional Family Medical History / Comment(s): Open Heart Sx Father History Unknown: Yes Family Medical History: CVA/TIA Sister(s) History Unknown: Yes Family Medical History: Cancer Additional Family Medical History / Comment(s): Breast Cancers Brother(s) History Unknown: Yes Family Medical History: CVA/TIA Additional Family Medical History / Comment(s): Magdaleno Bleed General Exam Limitations: no limitations General appearance: alert, in no apparent distress Head exam: Present: atraumatic, normocephalic, normal inspection Eye exam: Present: normal appearance, PERRL, EOMI. Absent: scleral icterus, conjunctival injection, periorbital swelling ENT exam: Present: normal exam, normal oropharynx, mucous membranes moist Neck exam: Present: normal inspection, full ROM. Absent: tenderness, meningismus, lymphadenopathy Respiratory exam: Present: normal lung sounds bilaterally. Absent: respiratory distress, wheezes, rales, rhonchi, stridor Cardiovascular Exam: Present: regular rate, normal rhythm, normal heart sounds. Absent: systolic murmur, diastolic murmur, rubs, gallop, clicks GI/Abdominal exam: Present: soft, normal bowel sounds. Absent: distended, tenderness, guarding, rebound, rigid Extremities exam: Present: pedal edema, other (Pulses all extremity within nor mal limits.) Neurological exam: Present: alert, oriented X3, CN II-XII intact Skin exam: Present: warm, dry, intact, normal color. Absent: rash Course Vital Signs 03/19/20 03/19/20 03/19/20 10:16 10:54 11:24 Temperature 97.5 F L Pulse Rate 57 L 62 Respiratory 18 18 Rate Blood Pressure 206/73 191/72 133/51 O2 Sat by Pulse 98 98 98 Oximetry 03/19/20 11:43 Temperature Pulse Rate 56 L Respiratory 18 Rate Blood Pressure 125/50 O2 Sat by Pulse 100 Oximetry Medical Decision Making - Medical Decision Making 85-year-old presented for asymptomatic hypertension. Patient was given blood pressure medication which patient responded well. Blood pressure within normal range at this time labs are unremarkable EKG did not show any acute changes. Patient will be discharged in stable condition return parameters were discussed advised to monitor blood pressure follow-up with PCP - Lab Data Result diagrams: 03/19/20 10:50 03/19/20 10:50 Lab Results 03/19/20 03/19/20 03/19/20 Range/Units 10:50 10:50 10:50 WBC 6.8 (3.8-10.6) k/uL RBC 5.05 (3.80-5.40) m/uL Hgb 14.4 (11.4-16.0) gm/dL Hct 45.4 (34.0-46.0) % MCV 89.9 (80.0-100.0) fL MCH 28.6 (25.0-35.0) pg MCHC 31.8 (31.0-37.0) g/dL RDW 13.7 (11.5-15.5) % Plt Count 213 (150-450) k/uL Neutrophils % 69 % Lymphocytes % 21 % Monocytes % 6 % Eosinophils % 3 % Basophils % 0 % Neutrophils # 4.7 (1.3-7.7) k/uL Lymphocytes # 1.4 (1.0-4.8) k/uL Monocytes # 0.4 (0-1.0) k/uL Eosinophils # 0.2 (0-0.7) k/uL Basophils # 0.0 (0-0.2) k/uL Sodium 140 (137-145) mmol/L Potassium 3.9 (3.5-5.1) mmol/L Chloride 103 (98-107) mmol/L Carbon Dioxide 30 (22-30) mmol/L Anion Gap 7 mmol/L BUN 20 H (7-17) mg/dL Creatinine 0.80 (0.52-1.04) mg/dL Est GFR (CKD-EPI)AfAm 79 (>60 ml/min/1.73 sqM) Est GFR (CKD-EPI)NonAf 69 (>60 ml/min/1.73 sqM) Glucose 135 H (74-99) mg/dL Calcium 9.5 (8.4-10.2) mg/dL Troponin I <0.012 (0.000-0.034) ng/mL Disposition Clinical Impression: Hypertension Disposition: HOME SELF-CARE Condition: Stable Instructions (If sedation given, give patient instructions): Hypertension (ED) Additional Instructions: Please return to the Emergency Department if symptoms worsen or any other concerns. Is patient prescribed a controlled substance at d/c from ED?: No Referrals: Alex Murray MD [Primary Care Provider] - 1-2 days Time of Disposition: 12:09
[2020-03-19 11:05] LABS: Basophils % (A) 0 %; Eosinophils # (A) 0.2 k/uL (0-0.7); Eosinophils % (A) 3 %; HCT 45.4 % (34.0-46.0); HGB 14.4 gm/dL (11.4-16.0); Lymphocytes # (A) 1.4 k/uL (1.0-4.8); Lymphocytes % (A) 21 %; MCH 28.6 pg (25.0-35.0); MCHC 31.8 g/dL (31.0-37.0); MCV 89.9 fL (80.0-100.0); Monocytes # (A) 0.4 k/uL (0-1.0); Monocytes % (A) 6 %; Neutrophils # (A) 4.7 k/uL (1.3-7.7); Neutrophils % (A) 69 %; Platelet Count 213 k/uL (150-450); RBC 5.05 m/uL (3.80-5.40); RDW 13.7 % (11.5-15.5); WBC 6.8 k/uL (3.8-10.6)
[2020-03-19 11:31] LABS: Calcium 9.5 mg/dL (8.4-10.2); Potassium 3.9 mmol/L (3.5-5.1)
[2020-03-19 11:44] VITALS: BP 125/50; PULSE 56
== END 2020-03-19 12:23 | disposition home or self-care (01) ==
LOC: EC 09:58
DX: I10 Essential (primary) hypertension (principal); E78.5 Hyperlipidemia, unspecified; E07.9 Disorder of thyroid, unspecified; K21.9 Gastro-esophageal reflux disease without esophagitis; Z79.82 Long term (current) use of aspirin; Z79.890 Hormone replacement therapy; Z79.899 Other long term (current) drug therapy; Z88.1 Allergy status to other antibiotic agents; Z88.5 Allergy status to narcotic agent; Z88.6 Allergy status to analgesic agent; Z88.8 Allergy status to other drugs, medicaments and biological substances; Z85.850 Personal history of malignant neoplasm of thyroid
CPT/HCPCS: 99283 ×2; 96374 ×2; 36415; 93005; 80048; 84484; 85025; 93975; 76700; J0360

== ENCOUNTER → 2020-03-19 | Outpatient (CLI) | payer MEDICARE, BC ==
--- NOTE | 2020-03-19 08:42 | US ---
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 Patient states having an xray performed at a medical office that showed splenic artery aneurysm. EXAM MEASUREMENTS: Liver Length: 12.5 cm Gallbladder Wall: 0.2 cm CBD: 0.4 cm Spleen: 9.5 cm Right Kidney: 8.9 x 3.8 x 4.3 cm Left Kidney: 9.1 x 4.4 x 4.7 cm Pancreas: wnl Liver: Right posterior lobe echogenic lesion, nonvascular = 1.5 x 1.7 x 1.6 cm Gallbladder: wnl Evidence for sonographic Garcia's sign: neg CBD: wnl Spleen: echogenic focus with shadowing = 0.5 x 0.4 cm. No prominent splenic artery aneurysm visuali zed by ultrasound- limited by overlying bowel gas. Arterial and venous flow seen. Right Kidney: Multiple cystic appearing lesions visualized. Largest lower pole = 1.9 x 1.8 x 2.2 cm Left Kidney: No hydronephrosis or masses seen Upper IVC: wnl Abd Aorta: Atherosclerotic changes seen. No AAA visualized. The liver is homogenous. The intrahepatic portion of the IVC and proximal abdominal aorta are within normal limits. There is no evidence of cholelithiasis. Common bile duct is unremarkable. The visu alized portions of the pancreas are homogenous. The spleen is unremarkable. Kidneys are symmetric a nd free of hydronephrosis. No solid renal lesions are seen. IMPRESSION: 1. No evidence for splenic artery aneurysm at this time. 2. Probable hepatic hemangioma. 3. Multiple right renal cysts noted.
== END | disposition home or self-care (01) ==
LOC: RADUSWWP 07:36
PROVIDERS: ATTEND Internal Medicine
DX: I72.8 Aneurysm of other specified arteries (principal); N28.1 Cyst of kidney, acquired; I70.0 Atherosclerosis of aorta
CPT/HCPCS: 76700; 93975

== ENCOUNTER → 2020-12-12 | Outpatient (CLI) | payer MEDICARE, BC ==
--- NOTE | 2020-12-13 10:55 | MM ---
Reason for exam: screening (asymptomatic). Last mammogram was performed 2 years and 6 months ago. History: Patient is postmenopausal and has history of other cancer at age 53. Family history of breast cancer in sister at age 65. 2 excisional biopsies of the right breast. Took estrogen for 14 years 7 months. Physical Findings: A clinical breast exam by your physician is recommended on an annual basis and results should be correlated with mammographic findings. MG 3D Screening Mammo W/Cad Bilateral CC and MLO view(s) were taken. Prior study comparison: June 07, 2018, bilateral MG 3d screening mammo w/cad. September 01, 2016, bilateral MG 3d screening mammo w/cad. The breast tissue is extremely dense which could obscure a lesion on mammography. Finding #1: Architectural distortion in the upper outer quadrant of the right breast. Finding #2: There are typically benign calcifications in both breasts. ASSESSMENT: Incomplete: need additional imaging evaluation, BI-RAD 0 RECOMMENDATION: Special view mammogram of the right breast. If lesion persists on supplemental views, image directed ultrasound is recommended. [facility] will attempt to contact patient to return for supplemental views and ultrasound if indicated.
== END | disposition home or self-care (01) ==
LOC: RADMAMWWP 14:44
PROVIDERS: ATTEND Obstetrics & Gynecology
DX: Z12.31 Encounter for screening mammogram for malignant neoplasm of breast (principal); Z78.0 Asymptomatic menopausal state; Z80.3 Family history of malignant neoplasm of breast
CPT/HCPCS: 77063; 77067

== ENCOUNTER → 2020-12-18 | Outpatient (CLI) | payer MEDICARE, BC ==
--- NOTE | 2020-12-18 11:06 | MM ---
Reason for exam: additional evaluation requested from abnormal screening. Last mammogram was performed less than 1 month ago. History: Patient is postmenopausal and has history of other cancer at age 53. Family history of breast cancer in sister at age 65. 2 excisional biopsies of the right breast. Took estrogen for 14 years 7 months. Physical Findings: Nurse did not find any significant physical abnormalities on exam. MG 3D Work Up W/Cad RT Spot compression CC, spot compression MLO, and ML view(s) were taken of the right breast. Prior study comparison: December 12, 2020, bilateral MG 3d screening mammo w/cad. June 07, 2018, bilateral MG 3d screening mammo w/cad. The breast tissue is heterogeneously dense. This may lower the sensitivity of mammography. There is no discrete abnormality. No discrete distortion at prior site. No significant new findings when compared with previous films. These results were verbally communicated with the patient and result sheet given to the patient on 12/18/20. ASSESSMENT: Probably benign, BI-RAD 3 RECOMMENDATION: Follow-up diagnostic mammogram of the right breast in 6 months.
== END | disposition home or self-care (01) ==
LOC: RADMAMWWP 09:48
PROVIDERS: ATTEND Obstetrics & Gynecology
DX: R92.8 Other abnormal and inconclusive findings on diagnostic imaging of breast (principal); Z78.0 Asymptomatic menopausal state; Z80.3 Family history of malignant neoplasm of breast
CPT/HCPCS: 77065; G0279; 77061

== ENCOUNTER → 2020-12-24 | Outpatient (CLI) | payer MEDICARE, BC ==
[~2020-12-24] MED LIST: DENOSUMAB 60 MG/ML 1 ML SYRINGE SQ NR
[2020-12-24 11:44] VITALS: BP 155/77; PULSE 63; TEMP 97.7
== END | disposition home or self-care (01) ==
LOC: PROCWHC3 11:29
PROVIDERS: ATTEND Internal Medicine
DX: M81.0 Age-related osteoporosis without current pathological fracture (principal)
CPT/HCPCS: 96372; J0897

== ENCOUNTER → 2021-02-06 | Outpatient (CLI) | payer MEDICARE, BC ==
[2021-02-06 23:04] LABS: Basophils # (A) 0.01 X 10*3/uL (0.00-0.10); Basophils % (A) 0.2 %; Eosinophils # (A) 0.17 X 10*3/uL (0.04-0.35); Eosinophils % (A) 2.7 %; HCT 41.7 % (37.2-46.3); Lymphocytes % (A) 23.8 %; MCH 28.1 pg (27.0-32.0); MCHC 31.2 g/dL (32.0-37.0); MCV 90.3 fL (80.0-97.0); Mean Platelet Volume 10.9 fL (9.5-12.2); Monocytes # (A) 0.63 X 10*3/uL (0.20-1.00); Neutrophils # (A) 3.99 X 10*3/uL (1.80-7.70); Neutrophils % (A) 63.1 %; Platelet Count 192 X 10*3/uL (140-440); RBC 4.62 X 10*6/uL (4.10-5.20); RDW 14.3 % (11.5-14.5); WBC 6.31 X 10*3/uL (4.50-10.00)
[2021-02-07 00:45] LABS: African American GFR (CKD) 68.1 (60.0-200.0); Albumin 4.5 g/dL (3.80-4.90); Albumin/Globulin Ratio 1.96 (1.60-3.17); Anion Gap 7.5 mmol/L (4.00-12.00); BUN/Creat Ratio 32.22 Ratio (12.00-20.00); Calcium 9.5 mg/dL (8.7-10.3); Carbon Dioxide 30.5 mmol/L (21.6-31.8); Globulin 2.3 g/dL (1.6-3.3); Non-African American GFR(CKD) 58.7 (60.0-200.0); Potassium 3.9 mmol/L (3.5-5.5); Total Bilirubin 0.8 mg/dL (0.2-1.2); Total Protein 6.8 g/dL (6.2-8.2)
== END | disposition home or self-care (01) ==
LOC: LABWHC1 16:05
PROVIDERS: ATTEND Internal Medicine
DX: E27.40 Unspecified adrenocortical insufficiency (principal); R53.83 Other fatigue; R53.1 Weakness
CPT/HCPCS: 36415; 80053; 82533; 85025

== ENCOUNTER → 2021-06-30 | Outpatient (CLI) | payer MEDICARE, BC ==
--- NOTE | 2021-07-01 13:41 | MM ---
Reason for exam: follow-up at short interval from prior study. Last mammogram was performed 6 months ago. History: Patient is postmenopausal and has history of other cancer at age 53. Family history of breast cancer in sister at age 65. 2 excisional biopsies of the right breast. Took estrogen for 14 years 7 months. Physical Findings: Nurse did not find any significant physical abnormalities on exam. MG 3D Diag Mammo W/Cad RT CC and MLO view(s) were taken of the right breast. Prior study comparison: December 18, 2020, right breast MG 3d work up w/cad RT. December 12, 2020, bilateral MG 3d screening mammo w/cad. June 07, 2018, bilateral MG 3d screening mammo w/cad. The breast tissue is heterogeneously dense. This may lower the sensitivity of mammography. No significant new findings when compared with previous films. These results were verbally communicated with the patient and result sheet given to the patient on 06/30/21. ASSESSMENT: Benign, BI-RAD 2 RECOMMENDATION: Return to routine screening mammogram schedule for both breasts. Back on schedule.
== END | disposition home or self-care (01) ==
LOC: RADMAMWWP 14:14
PROVIDERS: ATTEND Obstetrics & Gynecology
DX: R92.8 Other abnormal and inconclusive findings on diagnostic imaging of breast (principal)
CPT/HCPCS: 77065; G0279; 77061

== ENCOUNTER → 2021-06-30 | Outpatient (CLI) | payer MEDICARE, BC ==
[2021-06-30 14:02] VITALS: BP 151/62; PULSE 60; RESP 16; TEMP 97.6
== END | disposition home or self-care (01) ==
LOC: PROCWHC3 13:50
PROVIDERS: ATTEND Internal Medicine
DX: M81.0 Age-related osteoporosis without current pathological fracture (principal)
CPT/HCPCS: 96372; J0897

== ENCOUNTER → 2022-01-05 | Outpatient (CLI) | payer MEDICARE, BC ==
[2022-01-05 13:51] VITALS: BP 165/74; PULSE 100; RESP 16; TEMP 97.7
== END | disposition home or self-care (01) ==
LOC: PROCWHC3 13:40
PROVIDERS: ATTEND Internal Medicine
DX: M81.0 Age-related osteoporosis without current pathological fracture (principal)
CPT/HCPCS: 96372; J0897

== ENCOUNTER → 2022-03-09 | Outpatient (CLI) | payer MEDICARE, BC ==
--- NOTE | 2022-03-10 13:26 | MM ---
Reason for Exam: Screening (asymptomatic). Last mammogram was performed 1 year(s) and 3 month(s) ago. Patient History: Menarche at age 14. First Full-Term at age 25. Hysterectomy at age 38. Postmenopausal. Estrogen for 14 years, 7 months. Excisional Biopsy on the Right side. Excisional Biopsy on the Right side. Niece had breast cancer, age 43. Sister had breast cancer, age 65. Risk Values: Aleyda 5 year model risk: 3.7%. NCI Lifetime model risk: 3.7%. Prior Study Comparison: 12/12/2020 Bilateral Screening Mammogram, [facility]. 12/18/2020 Right Diagnostic Mammogram, [facility]. 06/30/2021 Right Diagnostic Mammogram, [facility]. Tissue Density: The breast tissue is extremely dense which could obscure a lesion on mammography. Findings: Analyzed By CAD. No suspicious groups of microcalcifications, spiculated or lobular masses, architectural distortion or other secondary signs of malignancy are mammographically apparent. Overall Assessment: Benign, BI-RAD 2 Management: Screening Mammogram of both breasts in 1 year. A negative mammogram report should not preclude additional follow up of suspicious palpable abnormalities. Patient should continue monthly self breast exam. A clinical breast exam by your physician is recommended on an annual basis and results should be correlated with mammographic findings. Electronically signed and approved by: Vishnu Zavala D.O. Radiologis
== END | disposition home or self-care (01) ==
LOC: RADMAMWWP 11:54
PROVIDERS: ATTEND Obstetrics & Gynecology
DX: Z12.31 Encounter for screening mammogram for malignant neoplasm of breast (principal); Z80.3 Family history of malignant neoplasm of breast
CPT/HCPCS: 77063; 77067

== ENCOUNTER → 2022-07-17 | Outpatient (CLI) | payer MEDICARE, BC ==
[~2022-07-17] MED LIST changes: +COSYNTROPIN 0.25 MG VIAL IVP NR; +SODIUM CHLORIDE 0.9% 500 ML 500 ML in EMPTY BAG 1 BAG IV PRN
[2022-07-17 09:20] VITALS: BP 193/74; PULSE 69; RESP 16; TEMP 97.8
== END | disposition home or self-care (01) ==
LOC: PROCWHC3 08:47
PROVIDERS: ATTEND Internal Medicine
DX: M81.0 Age-related osteoporosis without current pathological fracture (principal); E27.40 Unspecified adrenocortical insufficiency
CPT/HCPCS: 82533; 82024; 96372; 96374; J0834; J0897

== ENCOUNTER → 2023-07-02 | Outpatient (CLI) | payer MEDICARE, BC ==
--- NOTE | 2023-07-06 14:48 | MM ---
Reason for Exam: Screening (asymptomatic). Last mammogram was performed 1 year(s) and 4 month(s) ago. Patient History: Menarche at age 14. First Full-Term at age 25. Hysterectomy at age 38. Postmenopausal. Estrogen for 14 years, 7 months. Excisional Biopsy on the Right side. Excisional Biopsy on the Right side. Niece had breast cancer, age 43. Sister had breast cancer, age 65. Prior Study Comparison: 12/18/2020 Right Diagnostic Mammogram, [facility]. 06/30/2021 Right Diagnostic Mammogram, [facility]. 03/09/2022 Bilateral MG 3D screening mammo w/cad, [facility]. Tissue Density: The breast tissue is heterogeneously dense. This may lower the sensitivity of mammography. Findings: Analyzed By CAD. Pattern appears symmetrical and stable. No significant interval change is evident. Pacemaker overlies left chest. No suspicious groups of microcalcifications, spiculated or lobular masses, architectural distortion or other secondary signs of malignancy are mammographically apparent. Overall Assessment: Benign, BI-RAD 2 Management: Screening Mammogram of both breasts in 1 year. A negative mammogram report should not preclude additional follow up of suspicious palpable abnormalities. Patient should continue monthly self breast exam. A clinical breast exam by your physician is recommended on an annual basis and results should be correlated with mammographic findings. Electronically signed and approved by: Vishnu Zavala D.O. Radiologis
== END | disposition home or self-care (01) ==
LOC: RADMAMWWP 15:50
PROVIDERS: ATTEND Obstetrics & Gynecology
DX: Z12.31 Encounter for screening mammogram for malignant neoplasm of breast (principal); Z78.0 Asymptomatic menopausal state; Z80.3 Family history of malignant neoplasm of breast
CPT/HCPCS: 77063; 77067

== ENCOUNTER → 2023-07-22 | Outpatient (CLI) | payer MEDICARE, BC ==
[~2023-07-22] MED LIST changes: -COSYNTROPIN 0.25 MG VIAL IVP NR; -SODIUM CHLORIDE 0.9% 500 ML 500 ML in EMPTY BAG 1 BAG IV PRN
[2023-07-22 13:49] VITALS: BP 161/92; PULSE 69; RESP 16; TEMP 97.6
== END ==
LOC: PROCWHC3 13:19
PROVIDERS: ATTEND Internal Medicine
DX: M81.0 Age-related osteoporosis without current pathological fracture (principal)
CPT/HCPCS: 96372; J0897

== ENCOUNTER → 2024-02-25 | Outpatient (CLI) | payer MEDICARE, BC ==
[2024-02-25] MEDS: DENOSUMAB 60 MG/ML 1 ML SYRINGE SQ ONE (10:45)
[2024-02-25 11:04] VITALS: BP 162/76; PULSE 71; RESP 16; TEMP 97.6
== END ==
LOC: PROCWHC3 10:35
PROVIDERS: ATTEND Internal Medicine
DX: M81.0 Age-related osteoporosis without current pathological fracture (principal)
CPT/HCPCS: 96372; J0897